=== PATIENT | female | born 1930 | race Caucasian/White ===

== ENCOUNTER 2017-09-03 23:21 | Emergency (ER) | END 2017-09-04 07:05 | disposition home or self-care (01) ==

== ENCOUNTER 2017-11-27 00:51 | Observation (INO) | END 2017-11-29 20:15 | disposition home or self-care (01) ==

== ENCOUNTER 2018-09-09 18:48 | Emergency (ER) | payer MEDICARE, OTHER ==
[~2018-09-09] VITALS: Ht 160 cm; Wt 70.0 kg
[~2018-09-09 18:48] MED LIST: ALEN70TA5 PO; CLOP75TA19 PO; DONE5TAB53 PO; FEBU40TA PO; HYDR-3671 PO; LEVO125T7 PO; NEBI20TA2 PO; SITA100T11 PO; TRAM50TA PO
[2018-09-09 18:56] VITALS: Ht 160 cm; Wt 70.0 kg
[2018-09-09] MEDS ORDERED: SOD CHLORIDE 0.9% 1,000 ML IV STA (19:00)
[2018-09-09] MEDS ORDERED: CLON-379 PO (19:20)
[2018-09-09] MEDS ORDERED: HYDR-3672 PO (19:20)
[2018-09-09] MEDS ORDERED: DONE5TAB53 PO (19:21)
[2018-09-09] MEDS ORDERED: LEVO137T3 PO (19:21)
[2018-09-09] MEDS ORDERED: FURO20TA3 PO (19:21)
[2018-09-09] MEDS ORDERED: MEMA10TA PO (19:22)
[2018-09-09] MEDS ORDERED: ATOR20TA38 PO (19:22)
[2018-09-09] MEDS ORDERED: CLOP75TA19 PO (19:23)
[2018-09-09] MEDS ORDERED: SITA50TA2 PO (19:23)
[2018-09-09] MEDS ORDERED: POTA10TA37 PO (19:24)
--- NOTE | 2018-09-09 21:11 | ERD ---
ER Documentation Chief Complaint Chief Complaint BIBA for shaking after shot for UTI today HPI A [employer] was used 87-year-old female who presents via EMS for dry mouth and shakiness. The patient cannot provide a clear history. She states that she was at [facility] and received a shot for something, possibly a bladder infection. She states that she went home and started to have dry mouth and started to feel sh aky. Currently she is feeling somewhat better. She denies any fevers chills chest pain or abdominal pain. Remainder of HPI is exquisitely limited. ROS All systems reviewed and are negative except as per history of present illness. Medications Home Meds Reported Medications Potassium Chloride* (K-Dur*) 10 Meq Tab.prt.sr, 10 MEQ PO DAILY, TAB 09/09/18 Sitagliptin* (Januvia*) 50 Mg Tablet, 50 MG PO DAILY, #30 TAB 09/09/18 Clopidogrel Bisulfate* (Clopidogrel Bisulfate*) 75 Mg Tablet, 75 MG PO DAILY, #30 TAB 09/09/18 Memantine* (Namenda*) 10 Mg Tablet, 10 MG PO DAILY, #30 TAB 09/09/18 Atorvastatin Calcium* (Atorvastatin Calcium*) 20 Mg Tablet, 20 MG PO QHS, #30 TAB 09/09/18 Donepezil* (Aricept*) 5 Mg Tablet, 5 MG PO DAILY, TAB 09/09/18 Levothyroxine Sodium* (Levothyroxine Sodium*) 137 Mcg Tablet, 137 MCG PO BEFORE BREAKFAST, #30 TAB 09/09/18 Furosemide* (Furosemide*) 20 Mg Tablet, 20 MG PO BID, #30 TAB 09/09/18 Clonidine Hcl* (Clonidine Hcl*) 0.1 Mg Tab, 0.1 MG PO NEEDED, TAB 09/09/18 Hydralazine Hcl* (Apresoline*) 50 Mg Tab, 50 MG PO Q8, #90 TAB 09/09/18 Discontinued Reported Medications Nebivolol Hcl* (Bystolic*) 20 Mg Tablet, 20 MG PO DAILY, #30 TAB 11/26/17 Tramadol Hcl* (Ultram*) 50 Mg Tablet, 50 MG PO NEEDED PRN for PAIN, TAB 11/26/17 Donepezil* (Aricept*) 5 Mg Tablet, 5 MG PO DAILY, TAB 11/26/17 Febuxostat* (Uloric*) 40 Mg Tablet, 40 MG PO DAILY, TAB 11/26/17 Sitagliptin* (Januvia*) 100 Mg Tablet, 100 MG PO NEEDED, #30 TAB 11/26/17 Alendronate Sodium* (Fosamax*) 70 Mg Tablet, 70 MG PO Q7D, #4 TAB 11/26/17 Clopidogrel Bisulfate* (Clopidogrel Bisulfate*) 75 Mg Tablet, 75 MG PO DAILY, #30 TAB 11/26/17 Levothyroxine Sodium* (Levothyroxine Sodium*) 125 Mcg Tablet, 125 MCG PO BEFORE BREAKFAST, #30 TAB 11/26/17 Hydralazine Hcl* (Hydralazine Hcl*) 25 Mg Tab, 25 MG PO DAILY, #120 TAB 11/26/17 Allergies Allergies: Coded Allergies: No Known Allergy (Unverified , 09/09/18) PMhx/Soc History of Surgery: Yes (colon resection, 2001, bilat cataractectomy ) Anesthesia Reaction: No Hx Neurological Disorder: No Hx Respiratory Disorders: No Hx Cardiac Disorders: Yes (htn, high cholesterol) Hx Psychiatric Problems: No Hx Miscellaneous Medical Probl: Yes (Ovarian CA,diabetes,thyroid problems) Hx Alcohol Use: No Hx Substance Use: No Hx Tobacco Use: No Smoking Status: Never smoker FmHx Family History: No diabetes Physical Exam Vitals Vital Signs Date Temp Pulse Resp B/P (MAP) Pulse Ox O2 O2 Flow FiO2 Time Delivery Rate 09/09/18 98.3 60 20 157/89 98 18:56 (111) Physical Exam General: Well developed, well nourished, no acute distress Head: Normocephalic, atraumatic. Eyes: Pupils equally reactive, EOM intact ENT: Moist mucous membranes Neck: Supple, no lymphadenopathy Respiratory: Lungs clear bilaterally, no distress Cardiovascular: RRR, no murmurs, rubs, or gallops Abdominal: Soft, non-tender, non-distended, no peritoneal signs : Deferred MSK: No edema, no unilateral swelling, 5/5 strength Neurologic: Alert and oriented, moving all extremities, normal speech, no focal weakness, no cerebellar signs Skin: No rash Psych: Anxious mood Result Diagram: 09/09/18192509/09/181925 Results 24 hrs Laboratory Tests Test 09/09/18 19:26 White Blood Count 9.0 10^3/ul Red Blood Count 3.77 10^6/ul Hemoglobin 10.7 g/dl Hematocrit 33.2 % Mean Corpuscular Volume 88.1 fl Mean Corpuscular Hemoglobin 28.4 pg Mean Corpuscular Hemoglobin Concent 32.2 g/dl Red Cell Distribution Width 14.1 % Platelet Count 216 10^3/UL Mean Platelet Volume 11.7 fl Immature Granulocytes % 0.300 % Neutrophils % 64.6 % Lymphocytes % 18.8 % Monocytes % 14.5 % Eosinophils % 1.2 % Basophils % 0.6 % Nucleated Red Blood Cells % 0.0 /100WBC Immature Granulocytes # 0.030 10^3/ul Neutrophils # 5.8 10^3/ul Lymphocytes # 1.7 10^3/ul Monocytes # 1.3 10^3/ul Eosinophils # 0.1 10^3/ul Basophils # 0.1 10^3/ul Nucleated Red Blood Cells # 0.0 10^3/ul Sodium Level 140 mmol/L Potassium Level 3.7 mmol/L Chloride Level 102 mmol/L Carbon Dioxide Level 26 mmol/L Anion Gap 12 Blood Urea Nitrogen 27 mg/dl Creatinine 1.76 mg/dl Est Glomerular Filtrat Rate mL/min mL/min Glucose Level 109 mg/dl Calcium Level 9.3 mg/dl Current Medications Medications Dose Sig/David Start Time Status Last (Trade) Ordered Route PRN Stop Time Admin Dose Reason Admin Sodium 1,000 ml @ Q1H STAT 09/09/18 DC 09/09/18 Chloride 1,000 mls/hr IV 19:00 19:29 09/09/18 19:59 Procedures/MDM LAB INTERPRETATION: I reviewed the laboratory testing and it shows no evidence of acute process MEDICAL DECISION MAKING: The patient gave me permission to call [facility]. The patient was evaluated and had a thorough workup that included ultrasound of the gallbladder, CT of the abdomen pelvis, chest x-ray, urinalysis, CBC, coagulation, chemistry profile and troponin. Only abnormalities included positive leukocyte Estrace and a creatinine of 1.7. Diagnostic imaging was additionally negative. The patient was treated for possible pyelonephritis with Rocephin and discharged on Keflex and Macrobid. The patient does not exhibit any signs or symptoms concerning for allergic reaction. Her symptoms are not consistent with adverse reaction secondary to Rocephin. Anxiety seems to be playing a large role currently. Clinically I do not believe the patient is consistent with acute pyelonephritis. She has no fever, no flank pain and no urinary symptoms. Even at [facility] the patient did not have a leukocytosis. Diagnosis of pyelonephritis seems unlikely. I will recheck the patient's blood work to ensure no significant electrolyte abnormalities or leukocytosis but reassurance was provided and I believe the patient can be safely discharged. ER COURSE: * Laboratory testing is consistent with labs at [facility]. * The patient is feeling much better, ambulatory and resting comfortably. * The patient can be safely discharged home. CONSULTATION: None DISPOSITION PLAN: The patient does not have an identifiable emergent medical condition that warrants inpatient hospitalization at this time. The patient is deemed safe for discharge with outpatient follow-up. We discussed follow up with the patient's primary care doctor within 24 to 48 hours as needed. We also discussed return to the emergency room for worsening symptoms or worsening condition. Outpatient referral: None required Departure Diagnosis: Primary Impression: Dry mouth Additional Impression: Encounter for medical screening examination Condition: Stable Patient Instructions: Medical Screening Exam, Nonurgent Referrals: [facility] YOU HAVE RECEIVED A MEDICAL SCREENING EXAM AND THE RESULTS INDICATE THAT YOU DO NOT HAVE A CONDITION THAT REQUIRES URGENT TREATMENT IN THE EMERGENCY DEPARTMENT. FURTHER EVALUATION AND TREATMENT OF YOUR CONDITION CAN WAIT UNTIL YOU ARE SEEN IN YOUR DOCTORS OFFICE WITHIN THE NEXT 1-2 DAYS. IT IS YOUR RESPONSIBILITY TO MAKE AN APPOINTMENT FOR FOLOW-UP CARE. IF YOU HAVE A PRIMARY DOCTOR --you should call your primary doctor and schedule an appointment IF YOU DO NOT HAVE A PRIMARY DOCTOR YOU CAN CALL OUR PHYSICIAN REFERRAL HOTLINE AT IF YOU CAN NOT AFFORD TO SEE A PHYSICIAN YOU CAN CHOSE FROM THE FOLLOWING FORMERLY [facility] CLINICS [facility] [address] [facility] [address] [facility] [facility] [address] [facility] [address] [facility] [address] [facility] [facility]. [address] [facility] YOU HAVE RECEIVED A MEDICAL SCREENING EXAM AND THE RESULTS INDICATE THAT YOU DO NOT HAVE A CONDITION THAT REQUIRES URGENT TREATMENT IN THE EMERGENCY DEPARTMENT. FURTHER EVALUATION AND TREATMENT OF YOUR CONDITION CAN WAIT UNTIL YOU ARE SEEN IN YOUR DOCTORS OFFICE WITHIN THE NEXT 1-2 DAYS. IT IS YOUR RESPONSIBILITY TO MAKE AN APPOINTMENT FOR FOLOW-UP CARE. IF YOU HAVE A PRIMARY DOCTOR --you should call your primary doctor and schedule and appointment IF YOU DO NOT HAVE A PRIMARY DOCTOR YOU CAN CALL OUR PHYSICIAN REFERRAL HOTLINE AT . IF YOU CAN NOT AFFORD TO SEE A PHYSICIAN YOU CAN CHOSE FROM THE FOLLOWING [facility] INSTITUTIONS: [facility] [address] [place] [address] [facility] [address] [place] [address] [facility] [address] [place] [address] Additional Instructions: Call your primary care doctor TOMORROW for an appointment during the next 1 WEEK.Tell the corporation secretary that you were referred from this facility.See the doctor sooner or return here if your condition worsens before your appointment time. RICH DIETZ MD Sep 09, 2018 21:11
[2018-09-09 21:23] VITALS: BP 179/72; PULSE 65; RESP 16
== END 2018-09-09 21:30 | disposition home or self-care (01) ==
LOC: E/R 18:48
DX: R68.2 Dry mouth, unspecified (principal); I10 Essential (primary) hypertension; E11.9 Type 2 diabetes mellitus without complications; Z02.89 Encounter for other administrative examinations; Z79.01 Long term (current) use of anticoagulants; Z79.84 Long term (current) use of oral hypoglycemic drugs; Z85.43 Personal history of malignant neoplasm of ovary
CPT/HCPCS: 36415; 80048; 85025; 99284; J7030

== ENCOUNTER 2018-12-11 17:19 | Inpatient (IN) | payer MEDICARE, OTHER ==
[~2018-12-11] VITALS: Ht 157.5 cm; Wt 68.0 kg
[~2018-12-11 17:19] MED LIST changes: -ALEN70TA5 PO; +ATOR20TA38 PO; +CLON-379 PO; -FEBU40TA PO; +FURO20TA3 PO; -HYDR-3671 PO; +HYDR-3672 PO; -LEVO125T7 PO; +LEVO137T3 PO; +MEMA10TA PO; -NEBI20TA2 PO; +POTA10TA37 PO; -SITA100T11 PO; +SITA50TA2 PO; -TRAM50TA PO
[2018-12-11] MEDS ORDERED: LEVO112T57 PO (17:44)
[2018-12-11] MEDS ORDERED: ZOLP10TA5 PO (17:45)
[2018-12-11] MEDS ORDERED: morphine 2 MG INJ IV STA (18:08)
[2018-12-11] MEDS ORDERED: ONDANSETRON 4 MG INJ IV STA (18:08)
[2018-12-11] MEDS ORDERED: FUROSEMIDE 40 MG INJ IV STA (18:08)
[2018-12-11] MEDS ORDERED: NITROGLYCERIN 2% 1 GM OINT PKT TD STA (18:08)
[2018-12-11] MEDS ORDERED: ASPIRIN 325 MG TAB PO STA (18:08)
--- NOTE | 2018-12-11 19:24 | ERD ---
ER Documentation Chief Complaint Chief Complaint FEELING SICK AND WEAK HPI During the patient's encounter translation services were utilized Language: British Source: Video 88-year-old female history of hypertension who presents to the emergency room feeling weak for several days. Patient describes shortness of breath worse when laying flat, associated bilateral lower externally pitting edema. She notes her blood pressure has been elevated despite compliance with medication. She states that she took 2 of her blood pressure medications today. She denies any prior history of stents or CHF. No fevers chills cough or pleuritic pain. ROS All systems reviewed and are negative except as per history of present illness. Medications Home Meds Reported Medications Zolpidem Tartrate* (Zolpidem Tartrate*) 10 Mg Tablet, 10 MG PO QHS PRN for INSOMNIA, #30 TAB 12/11/18 Levothyroxine Sodium* (Levothyroxine Sodium*) 112 Mcg Tablet, 112 MCG PO BEFORE BREAKFAST, #30 TAB 12/11/18 Potassium Chloride* (K-Dur*) 10 Meq Tab.prt.sr, 10 MEQ PO DAILY, TAB 09/09/18 Sitagliptin* (Januvia*) 50 Mg Tablet, 50 MG PO DAILY, #30 TAB 09/09/18 Clopidogrel Bisulfate* (Clopidogrel Bisulfate*) 75 Mg Tablet, 75 MG PO DAILY, #30 TAB 09/09/18 Memantine* (Namenda*) 10 Mg Tablet, 10 MG PO DAILY, #30 TAB 09/09/18 Atorvastatin Calcium* (Atorvastatin Calcium*) 20 Mg Tablet, 20 MG PO QHS, #30 TAB 09/09/18 Donepezil* (Aricept*) 5 Mg Tablet, 5 MG PO DAILY, TAB 09/09/18 Furosemide* (Furosemide*) 20 Mg Tablet, 20 MG PO BID, #30 TAB 09/09/18 Clonidine Hcl* (Clonidine Hcl*) 0.1 Mg Tab, 0.1 MG PO NEEDED, TAB 09/09/18 Hydralazine Hcl* (Apresoline*) 50 Mg Tab, 50 MG PO BID, #90 TAB 09/09/18 Discontinued Reported Medications Levothyroxine Sodium* (Levothyroxine Sodium*) 137 Mcg Tablet, 137 MCG PO BEFORE BREAKFAST, #30 TAB 09/09/18 Allergies Allergies: Coded Allergies: No Known Allergy (Unverified , 12/11/18) PMhx/Soc History of Surgery: Yes (colon resection, 2002, bilat cataractectomy ) Anesthesia Reaction: No Hx Neurological Disorder: No Hx Respiratory Disorders: No Hx Cardiac Disorders: Yes (htn, high cholesterol) Hx Psychiatric Problems: No Hx Miscellaneous Medical Probl: Yes (Ovarian CA,diabetes,thyroid problems) Hx Alcohol Use: No Hx Substance Use: No Hx Tobacco Use: No FmHx Family History: No diabetes Physical Exam Vitals Vital Signs Date Temp Pulse Resp B/P (MAP) Pulse Ox O2 O2 Flow FiO2 Time Delivery Rate 12/11/18 175 23 175/54 95 Nasal 2.0 19:10 (94) Cannula 12/11/18 69 21 189/87 95 Nasal 2.0 18:46 (121) Cannula 12/11/18 98.4 68 18 210/86 98 17:31 (127) Physical Exam General: Well developed, well nourished, no acute distress Head: Normocephalic, atraumatic. Eyes: Pupils equally reactive, EOM intact ENT: Moist mucous membranes Neck: Supple, no lymphadenopathy Respiratory: Rales at the bases bilaterally, no significant distress Cardiovascular: RRR, no murmurs, rubs, or gallops Abdominal: Soft, non-tender, non-distended, no peritoneal signs : Deferred MSK: Bilateral lower extremity pitting edema, no unilateral swelling, 5/5 strength Neurologic: Alert and oriented, moving all extremities, normal speech, no focal weakness, no cerebellar signs Skin: No rash Psych: Normal mood Result Diagram: 12/11/18181112/11/181811 Results 24 hrs Laboratory Tests Test 12/11/18 18:12 White Blood Count 10.6 10^3/ul Red Blood Count 3.51 10^6/ul Hemoglobin 9.8 g/dl Hematocrit 31.4 % Mean Corpuscular Volume 89.5 fl Mean Corpuscular Hemoglobin 27.9 pg Mean Corpuscular Hemoglobin Concent 31.2 g/dl Red Cell Distribution Width 14.3 % Platelet Count 207 10^3/UL Mean Platelet Volume 10.8 fl Immature Granulocytes % 0.700 % Neutrophils % 76.3 % Lymphocytes % 11.2 % Monocytes % 9.9 % Eosinophils % 1.3 % Basophils % 0.6 % Nucleated Red Blood Cells % 0.0 /100WBC Immature Granulocytes # 0.070 10^3/ul Neutrophils # 8.1 10^3/ul Lymphocytes # 1.2 10^3/ul Monocytes # 1.0 10^3/ul Eosinophils # 0.1 10^3/ul Basophils # 0.1 10^3/ul Nucleated Red Blood Cells # 0.0 10^3/ul Prothrombin Time 13.5 Sec Prothrombin Time Ratio 1.1 INR International Normalized Ratio 1.02 Activated Partial Thromboplast Time 32.8 Sec Sodium Level 142 mmol/L Potassium Level 4.2 mmol/L Chloride Level 109 mmol/L Carbon Dioxide Level 26 mmol/L Anion Gap 7 Blood Urea Nitrogen 22 mg/dl Creatinine 1.31 mg/dl Est Glomerular Filtrat Rate mL/min mL/min Glucose Level 132 mg/dl Calcium Level 8.8 mg/dl Troponin I < 0.012 ng/ml B-Type Natriuretic Peptide 6240 PG/ML Current Medications Medications Dose Sig/David Start Time Status Last (Trade) Ordered Route PRN Stop Time Admin Dose Reason Admin Aspirin 325 mg ONCE STAT 12/11/18 DC 12/11/18 (Aspirin) PO 18:08 18:29 12/11/18 18:09 1 inch ONCE STAT 12/11/18 DC 12/11/18 Nitroglycerin TD 18:08 18:32 12/11/18 18:09 (Nitroglyceri n 2% Oint) Morphine 2 mg ONCE STAT 12/11/18 DC 12/11/18 Sulfate IV 18:08 18:33 (morphine) 12/11/18 18:09 Ondansetron 4 mg ONCE STAT 12/11/18 DC 12/11/18 HCl (Zofran IV 18:08 18:28 Inj) 12/11/18 18:09 Furosemide 40 mg ONCE STAT 12/11/18 DC 12/11/18 (Lasix) IV 18:08 18:32 12/11/18 18:09 Ondansetron 4 mg ER BRIDGE 12/11/18 HCl (Zofran PRN IV 19:30 Inj) NAUSEA/VOMITI 12/12/18 19:29 NG 650 mg ER BRIDGE 12/11/18 Acetaminophen PRN PO 19:30 (Tylenol .MILD PAIN 12/12/18 19:29 Tab) 1-3 OR TEMP Procedures/MDM EKG, MONITORS, & DIAGNOSTIC IMAGING: EKG: I reviewed and interpreted a 12-lead EKG. Rhythm: Normal sinus rhythm ST Changes: No contiguous ST segment elevations T waves: No contiguous T wave inversions Impression: [No evidence of acute cardiac ischemia] Repeat EKG: EKG: I reviewed and interpreted a 12-lead EKG. Rhythm: Normal sinus rhythm ST Changes: No contiguous ST segment elevations T waves: No contiguous T wave inversions Impression: [No evidence of acute cardiac ischemia] Chest x-ray: I reviewed and interpreted a 1 view of the chest Mediastinum: No enlargement Cardiac silhouette: cardiomegaly Airspace: Interstitial process bilaterally Bones: No evidence of fracture PROCEDURES: [None] LAB INTERPRETATION: * Negative troponin, elevated BNP MEDICAL DECISION MAKING: The patient's history, physical exam and clinical presentation is concerning for possible cardiogenic etiology and hypertensive emergency with decompensated heart failure new diagnosis of heart failure. Patient is protecting airway does not require positive pressure ventilation or nitroglycerin drip. Based on the patient's clinical exam and history and risk factors, I have a much lower clinical concern for pulmonary embolism, acute aortic dissection, pneumothorax, pneumonia, cardiac tamponade ER COURSE: * Patient was given nitroglycerin, Lasix, aspirin. The patient's blood pressure is dramatically improved and her lung exam is improved. * Patient does not require positive pressure ventilation or nitroglycerin drip. * Inpatient hospitalization for work-up for new onset CHF would be appropriate. CONSULTATION: [None] DISPOSITION PLAN: Telemetry admission for management of chest pain to rule out acute coronary syndrome, serial enzymes, risk stratification and consideration of provocative testing CONSULTATION: Accepting care team and consultations: I discussed the current laboratory data, diagnostic imaging and emergency care provided. Admitting team: Dr. Bradshaw Admitting team indication: Insurance directed Departure Diagnosis: Primary Impression: New onset of congestive heart failure Additional Impressions: Hypertensive emergency Acute renal insufficiency Anemia Anemia type: unspecified type Qualified Codes: D64.9 - Anemia, unspecified Condition: Stable RICH DIETZ MD December 11, 2018 19:24
[2018-12-11] MEDS ORDERED: ONDANSETRON 4 MG INJ IV PRN ×2 (19:30→20:30)
[2018-12-11] MEDS ORDERED: ACETAMINOPHEN 325 MG TAB PO PRN ×2 (19:30→20:30)
--- NOTE | 2018-12-11 20:05 | HP ---
Date/Time of Note Date/Time of Note DATE: 12/11/18 TIME: 20:05 Assessment/Plan VTE Prophylaxis SCD applied (from Nsg): Yes Pharmacological prophylaxis: NA/contraindicated Pharm contraindication: low risk/ambulating Lines/Catheters IV Catheter Type (from Nrsg): Saline Lock Assessment/Plan Hospital Course This is a 88-year-old female being admitted to the telemetry floor for: #1 acute systolic versus diastolic CHF exacerbation: Patient denies a previous history of CHF diagnosis, however based on her medications I do feel that she may have been diagnosed with a before.. She does have an elevated BNP of approximately 6000. She has signs of volume overload clinically and on imaging studies. At the current time will initiate the patient on Lasix 40 mg IV daily. Will monitor daily weights. Fluid restriction. We will check hemoglobin A 1C, lipid panel, TSH. Monitor urine output. Will check an echocardiogram. Will consult cardiology . #2 Sinus bradycardia: On admission patient's EKG showed normal sinus rhythm at approximately 65 bpm however on telemetry her heart rate has been noted to be in the 40s. As she is asymptomatic we will continue to monitor on telemetry. PRN atropine 0.5 mg IV for heart rate below 35 or symptomatic. Will consult cardiology . #3 hypertensive urgency: Patient did present with blood pressures in the 200s, possibly secondary to volume overload. Patient did receive nitro patch in the emergency department as well as Lasix which did improve her blood pressures. Will monitor blood pressures closely. #4 dementia: Continue patient's home medications #5 hypothyroidism: We will check a TSH, continue levothyroxine #6 Diabetes mellitus: We will check hemoglobin A 1C, will hold home oral medications at the current time #7 Antiplatelet: We will continue her on Plavix at the current time #8 DVT GI prophylaxis: Lovenox, no GI prophylaxis indicated Further treatment strategy will be implemented as per the clinical course Result Diagram: 12/11/18181112/11/182 Results 24hrs Laboratory Tests Test 12/11/18 18:12 White Blood Count 10.6 Red Blood Count 3.51 L Hemoglobin 9.8 L Hematocrit 31.4 L Mean Corpuscular Volume 89.5 Mean Corpuscular Hemoglobin 27.9 L Mean Corpuscular Hemoglobin Concent 31.2 L Red Cell Distribution Width 14.3 Platelet Count 207 Mean Platelet Volume 10.8 H Immature Granulocytes % 0.700 H Neutrophils % 76.3 Lymphocytes % 11.2 L Monocytes % 9.9 Eosinophils % 1.3 Basophils % 0.6 Nucleated Red Blood Cells % 0.0 Immature Granulocytes # 0.070 H Neutrophils # 8.1 H Lymphocytes # 1.2 Monocytes # 1.0 H Eosinophils # 0.1 Basophils # 0.1 Nucleated Red Blood Cells # 0.0 Prothrombin Time 13.5 Prothrombin Time Ratio 1.1 INR International Normalized Ratio 1.02 Activated Partial Thromboplast Time 32.8 Sodium Level 142 Potassium Level 4.2 Chloride Level 109 Carbon Dioxide Level 26 Anion Gap 7 Blood Urea Nitrogen 22 H Creatinine 1.31 H Est Glomerular Filtrat Rate mL/min Glucose Level 132 Calcium Level 8.8 Troponin I < 0.012 B-Type Natriuretic Peptide 6240 H HPI/ROS Admit Date/Time Admit Date/Time Hx of Present Illness Chief complaint: Shortness of breath, weak This is a 88-year-old female history of hypertension who presents to the emergency room feeling weak for several days. Patient describes shortness of breath worse when laying flat, associated bilateral lower externally pitting edema. She notes her blood pressure has been elevated despite compliance with medication. She states that she took 2 of her blood pressure medications today. She does not report a history of cardiac stents or CHF despite the fact that she is currently on Lasix. She lives with her . She is currently on Plavix and Lasix as well again patient is a poor historian I feel likely secondary to her dementia. Allergies: NKDA Medications: See Sep Const: As per HPI Eyes : No pain discharge or redness or change in visual acuity ENT: No pain, sore throat, congestion, congestion, dysphagia or discharge Respiratory: As per HPI Cardiovascular: No chest pain, palpitation, PND, or edema GI : no change in appetite, abdominal pain, nausea, vomiting, diarrhea, constipation, or change in the color his stool Genitourinary: No dysuria, hematuria, flank pain , discharge or CVA tenderness Musculoskeletal: As per HPI Skin: No rash, bruising or hives Neuro: No headache, dizziness, syncope, seizure, focal weakness Endocrine: No polyuria, polydipsia, temperature intolerance Psych: No hallucination, depression, anxiety or suicidal ideation PMH/Family/Social Past Medical History History of ovarian CA,diabetes, hypothyroidism, htn, high cholesterol, dementia Medications Current Medications Ondansetron HCl (Zofran Inj) 4 mg ER BRIDGE PRN IV NAUSEA/VOMITING; Start 12/11/18 at 19:30; Stop 12/12/18 at 19:29 Acetaminophen (Tylenol Tab) 650 mg ER BRIDGE PRN PO .MILD PAIN 1-3 OR TEMP; Start 12/11/18 at 19:30; Stop 12/12/18 at 19:29 Coded Allergies: No Known Allergy (Unverified , 12/11/18) Past Surgical History colon resection, 2002, bilat cataractectomy ) Family History Significant Family History: no pertinent family hx Social History Alcohol Use: none Smoking Status: Never smoker Drug Use: none Exam/Review of Systems Vital Signs Vitals Vital Signs Date Temp Pulse Resp B/P (MAP) Pulse Ox O2 O2 Flow FiO2 Time Delivery Rate 12/11/18 64 20 154/58 96 Nasal 2.0 19:45 (90) Cannula 12/11/18 98.4 17:31 Exam Exam General: Patient is a very pleasant female lying in bed in no acute distress HEENT: Atraumatic, normocephalic. The pupils are equal, round and reactive. Extraocular motor are intact Neck: Supple with full range of motion. No rigidity or meningismus Chest: Nontender Lungs: Crackles/rales bilaterally, expiratory wheezing, nonlabored breathing, nonproductive cough during expiration Heart: Normal S1-S2, Regular rhythm and rate. No murmur, S3, or S4 Abdomen: Soft , nontender, nondistended , bowel sounds are present. No guarding no rebound tenderness , No masses or organomegaly. No costovertebral temporal angle mass Extremities: Bilateral 2+ pitting edema of the lower extremities Neurologic: Normal mental status, speech normal, cranial nerves II through XII are intact, motor and sensory are intact, Additional Comments PROCEDURE: XR Chest, 1 View CLINICAL INDICATION: Chest pain. TECHNIQUE: Frontal view of the chest. COMPARISON: 08/10/2013 FINDINGS: LUNGS: Mildly increased pulmonary vascularity noted. Mildly increased interst itial markings. No consolidated infiltrates. PLEURAL SPACE: Small bilateral pleural effusions. No pneumothorax. HEART: Mild cardiomegaly is noted. MEDIASTINUM: Unremarkable. BONES/JOINTS: Degenerative spine changes are noted. IMPRESSION: 1. Mild cardiomegaly is noted. 2. Mildly increased pulmonary vascularity noted. Mildly increased interstitial markings. No consolidated infiltrates. Findings suggest mild fluid overload/CHF. 3. Small bilateral pleural effusions. RPTAT: [facility] Jair Maldonado, Physician Oncology Consultant Date Time Electronically viewed and signed by Jair Maldonado, Physician Oncology Consultant on 12/11/2018 18:45 RmC/ CC: RICH DIETZ MD [id number] EKG:. Rhythm: Normal sinus rhythm ST Changes: No contiguous ST segment elevations T waves: No contiguous T wave inversions Impression: [No evidence of acute cardiac ischemia] GURPREET LEVINE December 11, 2018 20:05
[2018-12-11] MEDS ORDERED: NITROGLYCERIN (SL) 0.4 MG TAB SL PRN (20:30)
[2018-12-11] MEDS ORDERED: BISACODYL (EC) 5 MG TAB PO PRN (20:30)
[2018-12-11] MEDS ORDERED: NACL 0.9% 3 ML SYG IV SCH (20:30)
[2018-12-11] MEDS ORDERED: DOCUSATE SODIUM 100 MG CAP PO PRN (20:30)
[2018-12-11] MEDS ORDERED: MAGNESIUM SULFATE 1 GM/D5W 100 ML IVPB ONE (23:00)
[2018-12-11] MEDS: POTASSIUM CHLORIDE (SR) 20 MEQ TAB PO STA ×2 (23:16→23:48)
[2018-12-12] VITALS (14 sets, daily range): BP systolic 119–168; BP diastolic 52–67; PULSE 39–81; RESP 16–18; Ht 157.5 cm; Wt 68.0 kg
[2018-12-12] MEDS: HEPARIN 5,000 UNIT/1 ML VIAL SC SCH ×4 (03:51→22:37)
[2018-12-12] MEDS ORDERED: LEVOTHYROXINE 112 MCG TAB PO SCH (07:00)
[2018-12-12] MEDS: MEMANTINE 10 MG TAB PO SCH (08:30)
[2018-12-12] MEDS: DONEPEZIL 5 MG TAB PO SCH (08:31)
[2018-12-12] MEDS: CLOPIDOGREL 75 MG TAB PO SCH (08:31)
[2018-12-12] MEDS ORDERED: POTASSIUM CHLORIDE (SR) 10 MEQ TAB PO SCH (09:00)
[2018-12-12] MEDS ORDERED: FUROSEMIDE 40 MG INJ IV SCH (09:00)
--- NOTE | 2018-12-12 10:38 | PN ---
Date/Time of Note Date/Time of Note DATE: 12/12/18 TIME: 10:26 Assessment/Plan VTE Prophylaxis Risk score (from Nsg)>0 risk: 4 SCD applied (from Nsg): Yes Pharmacological prophylaxis: heparin Lines/Catheters IV Catheter Type (from Nrs): Saline Lock Urinary Cath still in place: No Assessment/Plan Hospital Course 88-year-old female who presented to the emergency room with lethargy, shortness of breath and orthopnea admitted and managed as follows: 1. Acute resp failure 2/2 CHF exacerbation -Family had no prior knowledge of CHF diagnosis, though patient was mainta ined on Lasix therapy outpatient -patient on 2L O2 via NC 2. Poorly controlled hypertension: -Per family, patient had medications with change from hydralazine twice daily to a beta-rj and ARB (bystolic/avapro) combination just a week ago -Since patient has been on this new regimen, blood pressure has been poorly controlled. -she is back on bid hydralazine with excellent inhouse control -Patient will however indeed benefit from beta-rj and ARB therapy. -We will however defer to cardiology and nephrology, as patient is with LOUIE and with CHF exacerbation at this time -Continue current regimen for now 3. Sinus bradycardia: -Likely secondary to new beta-rj therapy -Patient is off AV sravanthi blockers at this time as an inpatient 4. Chronic kidney disease: Baseline creatinine somewhere between 1.2 and 1.6? -LOUIE? 5. Mild transaminitis, with ALT elevation, new onset, significance unclear. Patient also has elevated alkaline phosphatase, also new -Last liver ultrasound, November 2017 showed no hepatomegaly with normal echogenicity. will repeat -hepatitis screen? 6. Hypochromic anemia: Chronic, stable 7. Subclinical hyperthyroidism? --TSH is very low on screening labs, back in October 2017, she had normal TSH, will repeat TSH and check free T4 as well 8. History of dementia on Namenda Plan: -ACS has been ruled out, follow-up echocardiogram findings -Cardiology consultations to assist in blood pressure as well as CHF management -Continue routine supportive care and ,other plan as above , nephrology consult -continue diuresis, wean O2 as tolerated -Further interventions per course Result Diagram: 12/12/18 0738 12/12/18 0738 Results 24hrs Laboratory Tests Test 12/11/18 18:12 12/12/18 01:15 12/12/18 07:38 White Blood Count 10.6 7.3 # Red Blood Count 3.51 L 3.02 L Hemoglobin 9.8 L 8.8 L Hematocrit 31.4 L 27.7 L Mean Corpuscular Volume 89.5 91.7 Mean Corpuscular Hemoglobin 27.9 L 29.1 Mean Corpuscular Hemoglobin Concent 31.2 L 31.8 L Red Cell Distribution Width 14.3 14.5 Platelet Count 207 186 Mean Platelet Volume 10.8 H 12.0 H Immature Granulocytes % 0.700 H 0.300 Neutrophils % 76.3 64.9 Lymphocytes % 11.2 L 18.5 Monocytes % 9.9 13.5 H Eosinophils % 1.3 2.1 Basophils % 0.6 0.7 Nucleated Red Blood Cells % 0.0 0.0 Immature Granulocytes # 0.070 H 0.020 Neutrophils # 8.1 H 4.7 Lymphocytes # 1.2 1.3 Monocytes # 1.0 H 1.0 H Eosinophils # 0.1 0.2 Basophils # 0.1 0.1 Nucleated Red Blood Cells # 0.0 0.0 Prothrombin Time 13.5 Prothrombin Time Ratio 1.1 INR International Normalized Ratio 1.02 Activated Partial Thromboplast Time 32.8 Sodium Level 142 143 Potassium Level 4.2 4.8 Chloride Level 109 108 Carbon Dioxide Level 26 30 Anion Gap 7 5 Blood Urea Nitrogen 22 H 25 H Creatinine 1.31 H 1.50 H Est Glomerular Filtrat Rate mL/min Glucose Level 132 94 Calcium Level 8.8 9.0 Troponin I < 0.012 0.024 0.017 B-Type Natriuretic Peptide 6240 H Creatine Kinase 45 40 Creatine Kinase Index 2.6 2.6 Creatinine Kinase MB (Mass) 1.19 1.05 Hemoglobin A1c 5.6 Magnesium Level 2.4 Total Bilirubin 0.6 Direct Bilirubin 0.00 Indirect Bilirubin 0.6 Aspartate Amino Transf (AST/SGOT) 46 Alanine Aminotransferase (ALT/SGPT) 112 H Alkaline Phosphatase 125 H Total Protein 6.0 L Albumin 3.4 Globulin 2.60 Albumin/Globulin Ratio 1.30 Triglycerides Level 90 Cholesterol Level 137 LDL Cholesterol, Calculated 74 HDL Cholesterol 45 Cholesterol/HDL Ratio 3.0 Thyroid Stimulating Hormone (TSH) < 0.015 L Subjective 24 Hr Interval Summary Constitutional: improved Exam/Review of Systems Exam Vitals Vital Signs Date Temp Pulse Resp B/P (MAP) Pulse Ox O2 O2 Flow FiO2 Time Delivery Rate 12/12/18 Nasal 2.0 08:14 Cannula 12/12/18 53 08:01 12/12/18 97.5 16 127/57 99 07:27 (80) Intake and Output 12/11/18 12/11/18 12/12/18 1515:00 23:00 07:00 IntakeIntake Total 200 ml BalanceBalance 200 ml Constitutional: alert, obese Head: normocephalic, atraumatic Eyes: PERRL ENMT: mucosa pink and moist Respiratory: crackles/rales, diminished breath sounds; No wheezing Cardiovascular: regular rate and rhythm; No murmurs/extra sounds Gastrointestinal: soft, non-tender, bowel sounds Extremities: edema (1+ rosario [id number]) Neurological: No focal weakness Results Results 24hrs Laboratory Tests Test 12/11/18 18:12 12/12/18 01:15 12/12/18 07:38 White Blood Count 10.6 7.3 # Red Blood Count 3.51 L 3.02 L Hemoglobin 9.8 L 8.8 L Hematocrit 31.4 L 27.7 L Mean Corpuscular Volume 89.5 91.7 Mean Corpuscular Hemoglobin 27.9 L 29.1 Mean Corpuscular Hemoglobin Concent 31.2 L 31.8 L Red Cell Distribution Width 14.3 14.5 Platelet Count 207 186 Mean Platelet Volume 10.8 H 12.0 H Immature Granulocytes % 0.700 H 0.300 Neutrophils % 76.3 64.9 Lymphocytes % 11.2 L 18.5 Monocytes % 9.9 13.5 H Eosinophils % 1.3 2.1 Basophils % 0.6 0.7 Nucleated Red Blood Cells % 0.0 0.0 Immature Granulocytes # 0.070 H 0.020 Neutrophils # 8.1 H 4.7 Lymphocytes # 1.2 1.3 Monocytes # 1.0 H 1.0 H Eosinophils # 0.1 0.2 Basophils # 0.1 0.1 Nucleated Red Blood Cells # 0.0 0.0 Prothrombin Time 13.5 Prothrombin Time Ratio 1.1 INR International Normalized Ratio 1.02 Activated Partial Thromboplast Time 32.8 Sodium Level 142 143 Potassium Level 4.2 4.8 Chloride Level 109 108 Carbon Dioxide Level 26 30 Anion Gap 7 5 Blood Urea Nitrogen 22 H 25 H Creatinine 1.31 H 1.50 H Est Glomerular Filtrat Rate mL/min Glucose Level 132 94 Calcium Level 8.8 9.0 Troponin I < 0.012 0.024 0.017 B-Type Natriuretic Peptide 6240 H Creatine Kinase 45 40 Creatine Kinase Index 2.6 2.6 Creatinine Kinase MB (Mass) 1.19 1.05 Hemoglobin A1c 5.6 Magnesium Level 2.4 Total Bilirubin 0.6 Direct Bilirubin 0.00 Indirect Bilirubin 0.6 Aspartate Amino Transf (AST/SGOT) 46 Alanine Aminotransferase (ALT/SGPT) 112 H Alkaline Phosphatase 125 H Total Protein 6.0 L Albumin 3.4 Globulin 2.60 Albumin/Globulin Ratio 1.30 Triglycerides Level 90 Cholesterol Level 137 LDL Cholesterol, Calculated 74 HDL Cholesterol 45 Cholesterol/HDL Ratio 3.0 Thyroid Stimulating Hormone (TSH) < 0.015 L Medications Medication Current Medications IV Flush (NS 3 ml) 3 ml PER PROTOCOL IV ; Start 12/11/18 at 20:30 Ondansetron HCl (Zofran Inj) 4 mg Q6H PRN IV NAUSEA/VOMITING; Start 12/11/18 at 20:30 Nitroglycerin (Nitroglycerin (Sl Tab) 0.4 Mg) 1 tab Q5M PRN SL .CHEST PAIN; Start 12/11/18 at 20:30 Acetaminophen (Tylenol Tab) 650 mg Q6H PRN PO .PAIN 1-3 OR TEMP; Start 12/11/18 at 20:30 Docusate Sodium (Colace) 100 mg Q12H PRN PO .CONSTIPATION; Start 12/11/18 at 20:30 Bisacodyl (Dulcolax) 5 mg DAILY PRN PO .CONSTIPATION; Start 12/11/18 at 20:30 Heparin Sodium (Porcine) (Heparin (5000 Units/1ml)) 5,000 unit Q8 SC Last administered on 12/12/18at 03:51; Admin Dose 5,000 UNIT; Start 12/11/18 at 22:00 Furosemide (Lasix) 40 mg DAILY IV Last administered on 12/12/18at 08:31; Admin Dose 40 MG; Start 12/12/18 at 09:00 Atorvastatin Calcium (Lipitor) 20 mg QHS PO ; Start 12/12/18 at 21:00 Clopidogrel Bisulfate (plaVIX) 75 mg DAILY PO Last administered on 12/12/18 08:31; Admin Dose 75 MG; Start 12/12/18 at 09:00 Donepezil HCl (Aricept) 5 mg DAILY PO Last administered on 12/12/18 08:31; Admin Dose 5 MG; Start 12/12/18 at 09:00 Hydralazine HCl (Apresoline) 50 mg BID PO Last administered on 12/12/18 08:31; Admin Dose 50 MG; Start 12/12/18 at 09:00 Levothyroxine Sodium (Synthroid) 112 mcg BEFORE BREAKFAST PO Last administered on 12/12/18 07:16; Admin Dose 112 MCG; Start 12/12/18 at 07:00 Memantine (Namenda) 10 mg DAILY PO Last administered on 12/12/18 08:30; Admin Dose 10 MG; Start 12/12/18 at 09:00 Potassium Chloride (Klor-Con 10) 10 meq DAILY PO Last administered on 12/12/18 08:31; Admin Dose 10 MEQ; Start 12/12/18 at 09:00 Clonidine (Catapres) 0.1 mg DAILY PRN PO ELEVATED BLOOD PRESSURE; Start 12/12/18 at 07:30 OMER ALEGRIA December 12, 2018 10:37
--- NOTE | 2018-12-12 17:22 | RADRPT ---
Echocardiogram Report Patient Name: JOVI LUXPatient ID: [id number] : 1930 (88y 2m)Study Date: 12/12/2018 9:26:59 AM Gender: FAccession #: [id number] Tech: Otoniel Dozier [facility] Location: [facility] Ref.Physician: GURPREET LEVINE Height(Cm): BSA: Weight(Kg): Quality: AdequateOrder Physician: GURPREET LEVINE Account #: Procedures: Echocardiographic Report: Transthoracic echocardiogram with complete 2D, M-Mode, and doppler examination. Indications: Congestive Heart Failure. Measurements: 2D/M Mode Doppler Measurement Value Normal Range Measurement Value Normal Range LVIDd 2D 3.9 [ 3.8 - 5.2 ] cm AV Peak Taras 1.4 [ 100.0 - 170.0 ] cm/sec LVIDs 2D 2.3 [ 2.2 - 3.5 ] cm AV Peak PG 8.0 [ 2.0 - 9.0 ] mmHg LVPWd 2D 1.2 [ 0.6 - 0.9 ] cm LVOT Peak Taras 1.1 [ 70.0 - 110.0 ] cm/sec IVSd 2D 1.2 [ 0.6 - 0.9 ] cm LVOT Peak PG 5.0 [ 2.0 - 6.0 ] mmHg AoR Diam 2D 2.1 [ 2.3 - 3.1 ] cm MV E Peak Taras 1.4 [ 60.0 - 130.0 ] cm/sec EDV 2D 67.1 [ 46.0 - 106.0 ] ml MV A Peak Taras 0.8 [ 100.0 - 120.0 ] cm/sec ESV 2D 17.7 [ 14.0 - 42.0 ] ml MV E/A 1.8 [ 0.8 - 1.5 ] ratio EF 2D 73.6 [ 54.0 - 74.0 ] percent MV Decel Time 257 [ 104 - 258 ] msec LA Dimen 2D 4.1 [ 2.7 - 3.8 ] cm Lat E` Taras 0.1 [ 10.0 - 15.0 ] cm/sec Lateral E/E` 25.9 [ 1.0 - 2.0 ] ratio MV E/A 1.8 [ 0.8 - 1.5 ] ratio TR Peak Taras 2.9 [ 100.0 - 280.0 ] cm/sec TR Peak PG 34.0 mmHg RVSP 44.0 [ 10.0 - 36.0 ] mmHg Findings: Left Ventricle: Normal left ventricular systolic function. Normal left ventricular cavity size. Mild concentric left ventricular hypertrophy. Ejection fraction is visually estimated at 65 %. Tissue Doppler/Mitral Doppler indices are consistent with pseudonormalization with mildly elevated left atrial pressure (Stage II diastolic dysfunction). Right Ventricle: Normal right ventricular size. Normal right ventricular systolic function. Left Atrium: There is mild enlargement of left atrium. Right Atrium: The right atrium is normal in size. Mitral Valve: Mild mitral leaflet calcification. Mild mitral annular calcification. Mild mitral valve regurgitation. Aortic Valve: No hemodynamically significant aortic stenosis by doppler. Aortic cusps appear mildly calcified. Trace aortic valve regurgitation. Tricuspid Valve: Normal appearance of the tricuspid valve. Estimated peak PA systolic pressure 44 mmHg. There is mild tricuspid regurgitation. Pericardium: There is an anterior echo free space consistent with epicardial fat pad. Left pleural effusion seen. Aorta: Normal aortic root. IVC: Dilated IVC with respiratory collapse consistent with elevated right atrial pressure. Conclusions: There is mild enlargement of left atrium. Normal left ventricular systolic function. Normal left ventricular cavity size. Mild concentric left ventricular hypertrophy. Ejection fraction is visually estimated at 65 %. Tissue Doppler/Mitral Doppler indices are consistent with pseudonormalization with mildly elevated left atrial pressure (Stage II diastolic dysfunction). Mild mitral leaflet calcification. Mild mitral annular calcification. Mild mitral valve regurgitation. No hemodynamically significant aortic stenosis by doppler. Aortic cusps appear mildly calcified. Trace aortic valve regurgitation. Normal appearance of the tricuspid valve. Estimated peak PA systolic pressure 44 mmHg. There is mild tricuspid regurgitation. There is an anterior echo free space consistent with epicardial fat pad. Left pleural effusion seen. Electronically Signed By: Ryan Simeon 2018-12-12 17:21:22 PDT
--- NOTE | 2018-12-12 19:47 | CONS ---
Assessment/Plan Assessment/Plan Hospital Course (Demo Recall) 1. CHF: acute on chronic due to diastolic heart failure 2. HTN urgency 3. LOUIE 4. Dyslipidemia 5. thyroid d/o 6. memeory impairment 7. Marked sinus bradycardia currently is a 20 probably secondary to Bystolic REC HOLD IV LASIX NOW AND F/U renal fx echo reviewed cont BP control hold off on ARB due to LOUIE Thyroid management as per internal medicine. We will check the free T4 as well. We will hold off on Synthroid for now until further information is available Thank you for this referral. We will continue to follow along with you CHRISTIANO PEREIRA MD [facility] Consultation Date/Type/Reason Admit Date/Time Date of Consultation: December 12, 2018 Type of Consult Cardiology Reason for Consultation chf Requesting Provider: OMER ALEGRIA Date/Time of Note DATE: 12/12/18 TIME: 19:43 Hx of Present Illness Interventional cardiology consultation note Chief complaint: Shortness of breath palpitation Reason for consult: CHF History of present illness: Thank you for this referral. History was obtained from the patient is a poor historian discussion with staff physicians review of the chart. This is a pleasant 88-year-old female history of hypertension who presents to the emergency room feeling weak and short of breath and palpitation for several days. She was noted to have severe hypertension with blood pressure over 200 on admission. Currently blood pressure has much improved now She had stated that she took 2 of her blood pressure medications on the day of admission.. She does not report a history of cardiac stents or CHF despite the fact that she is currently on Lasix. She lives with her . Patient is currently breathing much better blood pressure is much better controlled Allergies: No known drug allergies Medications include: Avapro dosage is not clear Bystolic 10 mg nightly Clonidine patch Lipitor 20 mg 3 times a week ASA 81 QOD Donopezil 5 mg lasix 20 qod levothyroxiine 150 lexapro 5 qd remeron 15 mg qpm Family history: no reported early CAD Social history: NONSMOKER Past medical history: HTN Dyslipidemia hypothyroidism on synthroid dementia Review of system: Patient denies all others except for above-mentioned Past Medical History Home Meds Reported Medications Zolpidem Tartrate* (Zolpidem Tartrate*) 10 Mg Tablet, 10 MG PO QHS PRN for INSOMNIA, #30 TAB 12/11/18 Levothyroxine Sodium* (Levothyroxine Sodium*) 112 Mcg Tablet, 112 MCG PO BEFORE BREAKFAST, #30 TAB 12/11/18 Potassium Chloride* (K-Dur*) 10 Meq Tab.prt.sr, 10 MEQ PO DAILY, TAB 09/09/18 Sitagliptin* (Januvia*) 50 Mg Tablet, 50 MG PO DAILY, #30 TAB 09/09/18 Clopidogrel Bisulfate* (Clopidogrel Bisulfate*) 75 Mg Tablet, 75 MG PO DAILY, #30 TAB 09/09/18 Memantine* (Namenda*) 10 Mg Tablet, 10 MG PO DAILY, #30 TAB 09/09/18 Atorvastatin Calcium* (Atorvastatin Calcium*) 20 Mg Tablet, 20 MG PO QHS, #30 TAB 09/09/18 Donepezil* (Aricept*) 5 Mg Tablet, 5 MG PO DAILY, TAB 09/09/18 Furosemide* (Furosemide*) 20 Mg Tablet, 20 MG PO BID, #30 TAB 09/09/18 Clonidine Hcl* (Clonidine Hcl*) 0.1 Mg Tab, 0.1 MG PO NEEDED, TAB 09/09/18 Hydralazine Hcl* (Apresoline*) 50 Mg Tab, 50 MG PO BID, #90 TAB 09/09/18 Discontinued Reported Medications Levothyroxine Sodium* (Levothyroxine Sodium*) 137 Mcg Tablet, 137 MCG PO BEFORE BREAKFAST, #30 TAB 09/09/18 Medications Current Medications IV Flush (NS 3 ml) 3 ml PER PROTOCOL IV ; Start 12/11/18 at 20:30 Ondansetron HCl (Zofran Inj) 4 mg Q6H PRN IV NAUSEA/VOMITING; Start 12/11/18 at 20:30 Nitroglycerin (Nitroglycerin (Sl Tab) 0.4 Mg) 1 tab Q5M PRN SL .CHEST PAIN; Start 12/11/18 at 20:30 Acetaminophen (Tylenol Tab) 650 mg Q6H PRN PO .PAIN 1-3 OR TEMP; Start 12/11/18 at 20:30 Bisacodyl (Dulcolax) 5 mg DAILY PRN PO .CONSTIPATION; Start 12/11/18 at 20:30 Heparin Sodium (Porcine) (Heparin (5000 Units/1ml)) 5,000 unit Q8 SC Last administered on 12/12/18at 15:07; Admin Dose 5,000 UNIT; Start 12/11/18 at 22:00 Furosemide (Lasix) 40 mg DAILY IV Last administered on 12/12/18 08:31; Admin Dose 40 MG; Start 12/12/18 at 09:00 Atorvastatin Calcium (Lipitor) 20 mg QHS PO ; Start 12/12/18 at 21:00 Clopidogrel Bisulfate (plaVIX) 75 mg DAILY PO Last administered on 12/12/18 08:31; Admin Dose 75 MG; Start 12/12/18 at 09:00 Donepezil HCl (Aricept) 5 mg DAILY PO Last administered on 12/12/18 08:31; Admin Dose 5 MG; Start 12/12/18 at 09:00 Hydralazine HCl (Apresoline) 50 mg BID PO Last administered on 12/12/18 08:31; Admin Dose 50 MG; Start 12/12/18 at 09:00 Levothyroxine Sodium (Synthroid) 112 mcg BEFORE BREAKFAST PO Last administered on 12/12/18 07:16; Admin Dose 112 MCG; Start 12/12/18 at 07:00; Status Hold Memantine (Namenda) 10 mg DAILY PO Last administered on 12/12/18 08:30; Admin Dose 10 MG; Start 12/12/18 at 09:00 Potassium Chloride (Klor-Con 10) 10 meq DAILY PO Last administered on 12/12/18 08:31; Admin Dose 10 MEQ; Start 12/12/18 at 09:00 Clonidine (Catapres) 0.1 mg DAILY PRN PO ELEVATED BLOOD PRESSURE; Start 12/12/18 at 07:30 Docusate Sodium (Colace) 100 mg Q12H PO ; Start 12/12/18 at 20:30 Allergies: Coded Allergies: No Known Allergy (Unverified , 12/11/18) Social History Alcohol Use: none Smoking Status: Never smoker Drug Use: none Exam/Review of Systems Vital Signs Vitals Vital Signs Date Temp Pulse Resp B/P (MAP) Pulse Ox O2 O2 Flow FiO2 Time Delivery Rate 12/12/18 48 16:01 12/12/18 98.9 16 126/60 98 15:18 (82) 12/12/18 Nasal 2.0 08:14 Cannula Intake and Output 12/11/18 12/11/18 12/12/18 1515:00 23:00 07:00 IntakeIntake Total 200 ml BalanceBalance 200 ml Exam Exam General: Obese female no acute distress HEENT: NC/AT. pupils are equal. round. NECK: NO JVD. no stridor. CV: RRR. systolic murmur; no gallop or rubs. PULM: no wheezing or rhonchi. GI: SOFT, NT, ND, no rebound or guarding Extremity: trace B/L LE edema. no clubbing. neuro: awake and alert, Psych: calm and pleasant rectal: deferred : normal EKG was personally reviewed which shows sinus bradycardia nonspecific ST abnormalities Echocardiogram was also personally reviewed which shows: Normal left ventricular systolic function. Normal left ventricular cavity size. Mild concentric left ventricular hypertrophy. Ejection fraction is visually estimated at 65 %. Tissue Doppler/Mitral Doppler indices are consistent with pseudonormalization with mildly elevated left atrial pressure (Stage II diastolic dysfunction). Mild mitral leaflet calcification. Mild mitral annular calcification. Mild mitral valve regurgitation. No hemodynamically significant aortic stenosis by doppler. Aortic cusps appear mildly calcified. Trace aortic valve regurgitation. Normal appearance of the tricuspid valve. Estimated peak PA systolic pressure 44 mmHg. There is mild tricuspid regurgitation. There is an anterior echo free space consistent with epicardial fat pad. Left pleural effusion seen. Labs Result Diagram: 12/12/18 0738 12/12/18 0738 Results 24hrs Laboratory Tests Test 12/12/18 01:15 12/12/18 07:38 Creatine Kinase 45 40 Creatine Kinase Index 2.6 2.6 Creatinine Kinase MB (Mass) 1.19 1.05 Troponin I 0.024 0.017 White Blood Count 7.3 # Red Blood Count 3.02 L Hemoglobin 8.8 L Hematocrit 27.7 L Mean Corpuscular Volume 91.7 Mean Corpuscular Hemoglobin 29.1 Mean Corpuscular Hemoglobin Concent 31.8 L Red Cell Distribution Width 14.5 Platelet Count 186 Mean Platelet Volume 12.0 H Immature Granulocytes % 0.300 Neutrophils % 64.9 Lymphocytes % 18.5 Monocytes % 13.5 H Eosinophils % 2.1 Basophils % 0.7 Nucleated Red Blood Cells % 0.0 Immature Granulocytes # 0.020 Neutrophils # 4.7 Lymphocytes # 1.3 Monocytes # 1.0 H Eosinophils # 0.2 Basophils # 0.1 Nucleated Red Blood Cells # 0.0 Sodium Level 143 Potassium Level 4.8 Chloride Level 108 Carbon Dioxide Level 30 Anion Gap 5 Blood Urea Nitrogen 25 H Creatinine 1.50 H Est Glomerular Filtrat Rate mL/min Glucose Level 94 Hemoglobin A1c 5.6 Calcium Level 9.0 Magnesium Level 2.4 Total Bilirubin 0.6 Direct Bilirubin 0.00 Indirect Bilirubin 0.6 Aspartate Amino Transf (AST/SGOT) 46 Alanine Aminotransferase (ALT/SGPT) 112 H Alkaline Phosphatase 125 H Total Protein 6.0 L Albumin 3.4 Globulin 2.60 Albumin/Globulin Ratio 1.30 Triglycerides Level 90 Cholesterol Level 137 LDL Cholesterol, Calculated 74 HDL Cholesterol 45 Cholesterol/HDL Ratio 3.0 Thyroid Stimulating Hormone (TSH) < 0.015 L Medications Medications Current Medications IV Flush (NS 3 ml) 3 ml PER PROTOCOL IV ; Start 12/11/18 at 20:30 Ondansetron HCl (Zofran Inj) 4 mg Q6H PRN IV NAUSEA/VOMITING; Start 12/11/18 at 20:30 Nitroglycerin (Nitroglycerin (Sl Tab) 0.4 Mg) 1 tab Q5M PRN SL .CHEST PAIN; S tart 12/11/18 at 20:30 Acetaminophen (Tylenol Tab) 650 mg Q6H PRN PO .PAIN 1-3 OR TEMP; Start 12/11/18 at 20:30 Bisacodyl (Dulcolax) 5 mg DAILY PRN PO .CONSTIPATION; Start 12/11/18 at 20:30 Heparin Sodium (Porcine) (Heparin (5000 Units/1ml)) 5,000 unit Q8 SC Last administered on 12/12/18at 15:07; Admin Dose 5,000 UNIT; Start 12/11/18 at 22:00 Furosemide (Lasix) 40 mg DAILY IV Last administered on 12/12/18 08:31; Admin Dose 40 MG; Start 12/12/18 at 09:00 Atorvastatin Calcium (Lipitor) 20 mg QHS PO ; Start 12/12/18 at 21:00 Clopidogrel Bisulfate (plaVIX) 75 mg DAILY PO Last administered on 12/12/18 08:31; Admin Dose 75 MG; Start 12/12/18 at 09:00 Donepezil HCl (Aricept) 5 mg DAILY PO Last administered on 12/12/18 08:31; Admin Dose 5 MG; Start 12/12/18 at 09:00 Hydralazine HCl (Apresoline) 50 mg BID PO Last administered on 12/12/18 08:31; Admin Dose 50 MG; Start 12/12/18 at 09:00 Levothyroxine Sodium (Synthroid) 112 mcg BEFORE BREAKFAST PO Last administered on 12/12/18 07:16; Admin Dose 112 MCG; Start 12/12/18 at 07:00; Status Hold Memantine (Namenda) 10 mg DAILY PO Last administered on 12/12/18 08:30; Admin Dose 10 MG; Start 12/12/18 at 09:00 Potassium Chloride (Klor-Con 10) 10 meq DAILY PO Last administered on 12/12/18 08:31; Admin Dose 10 MEQ; Start 12/12/18 at 09:00 Clonidine (Catapres) 0.1 mg DAILY PRN PO ELEVATED BLOOD PRESSURE; Start 12/12/18 at 07:30 Docusate Sodium (Colace) 100 mg Q12H PO ; Start 12/12/18 at 20:30 CHRISTIANO PEREIRA MD December 12, 2018 19:47
[2018-12-12] MEDS: ATORVASTATIN 20 MG TAB PO SCH (21:30)
[2018-12-12] MEDS: DOCUSATE SODIUM 100 MG CAP PO SCH (21:30)
[2018-12-13] VITALS (11 sets, daily range): BP systolic 108–132; BP diastolic 54–79; PULSE 52–75; RESP 16–18
[2018-12-13] MEDS: HEPARIN 5,000 UNIT/1 ML VIAL SC SCH ×3 (07:01→21:42)
[2018-12-13] MEDS: DONEPEZIL 5 MG TAB PO SCH (08:33)
[2018-12-13] MEDS: DOCUSATE SODIUM 100 MG CAP PO SCH ×2 (08:33→21:37)
[2018-12-13] MEDS: MEMANTINE 10 MG TAB PO SCH (08:34)
[2018-12-13] MEDS: CLOPIDOGREL 75 MG TAB PO SCH (08:34)
--- NOTE | 2018-12-13 11:49 | PN ---
Date/Time of Note Date/Time of Note DATE: 12/13/18 TIME: 11:48 Assessment/Plan VTE Prophylaxis Risk score (from Nsg)>0 risk: 5 SCD applied (from Nsg): Yes Pharmacological prophylaxis: heparin Lines/Catheters IV Catheter Type (from Nrsg): Saline Lock Urinary Cath still in place: No Assessment/Plan Hospital Course S: no new complaints O : Constitutional: alert, obese Head: normocephalic, atraumatic Eyes: PERRL ENMT: mucosa pink and moist Respiratory: crackles/rales, diminished breath sounds; No wheezing Cardiovascular: regular rate and rhythm; No murmurs/extra sounds Gastrointestinal: soft, non-tender, bowel sounds Extremities: edema (1+ rosario [id number]) Neurological: No focal weakness assessment and plan: 88-year-old female who presented to the emergency room with lethargy, shortness of breath and orthopnea admitted and managed as follows: 1. Acute resp failure 2/2 CHF exacerbation -Family had no prior knowledge of CHF diagnosis, though patient was maintained on Lasix therapy outpatient -patient on 2L O2 via NC 2. Poorly controlled hypertension: -Per family, patient had medications with change from hydralazine twice daily to a beta-rj and ARB (bystolic/avapro) combination just a week ago -Since patient has been on this new regimen, blood pressure has been poorly controlled. -she is back on bid hydralazine with excellent inhouse control -Patient will however indeed benefit from beta-rj and ARB therapy. -We will however defer to cardiology and nephrology, as patient is with LOUIE and with CHF exacerbation at this time -Continue current regimen for now 3. Sinus bradycardia: -Likely secondary to new beta-rj therapy -Patient is off AV sravanthi blockers at this time as an inpatient 4. Chronic kidney disease: Baseline creatinine somewhere between 1.2 and 1.6? -LOUIE? 5. Mild transaminitis, with ALT elevation, new onset, significance unclear. Patient also has elevated alkaline phosphatase, also new -Last liver ultrasound, November 2017 showed no hepatomegaly with normal echogenicity. will repeat -hepatitis screen? 6. Hypochromic anemia: Chronic, stable 7. Hypothyroidism: --TSH is very low on screening labs, TSH is likely reflective of too tight control of hypothyroidism. Hold Synthroid for now, check T4 8. History of dementia on Namenda 9. Hx of PCI on plavix ? dispo -continue diuresis -continue supportive care -ambulate, PT eval -Further interventions per course Result Diagram: 12/13/186 12/13/18 0456 Results 24hrs Laboratory Tests Test 12/13/18 04:56 White Blood Count 8.3 Red Blood Count 3.14 L Hemoglobin 8.9 L Hematocrit 28.1 L Mean Corpuscular Volume 89.5 Mean Corpuscular Hemoglobin 28.3 L Mean Corpuscular Hemoglobin Concent 31.7 L Red Cell Distribution Width 14.5 Platelet Count 189 Mean Platelet Volume 12.1 H Immature Granulocytes % 0.200 Neutrophils % 64.2 Lymphocytes % 18.2 Monocytes % 11.8 H Eosinophils % 5.0 Basophils % 0.6 Nucleated Red Blood Cells % 0.0 Immature Granulocytes # 0.020 Neutrophils # 5.3 Lymphocytes # 1.5 Monocytes # 1.0 H Eosinophils # 0.4 Basophils # 0.1 Nucleated Red Blood Cells # 0.0 Sodium Level 141 Potassium Level 4.1 Chloride Level 106 Carbon Dioxide Level 30 Anion Gap 5 Blood Urea Nitrogen 34 H Creatinine 1.78 H Est Glomerular Filtrat Rate mL/min Glucose Level 96 Calcium Level 8.6 Magnesium Level 2.3 Total Bilirubin 0.5 Direct Bilirubin 0.00 Indirect Bilirubin 0.5 Aspartate Amino Transf (AST/SGOT) 29 Alanine Aminotransferase (ALT/SGPT) 83 H Alkaline Phosphatase 123 H B-Type Natriuretic Peptide 3740 H Total Protein 6.3 Albumin 3.3 Globulin 3.00 Albumin/Globulin Ratio 1.10 Thyroid Stimulating Hormone (TSH) 0.030 L Free Thyroxine 1.69 Hepatitis B Surface Antigen NEGATIVE Hepatitis B Surface Antibody NEGATIVE Hepatitis C Antibody NEGATIVE Exam/Review of Systems Exam Vitals Vital Signs Date Temp Pulse Resp B/P (MAP) Pulse Ox O2 O2 Flow FiO2 Time Delivery Rate 12/13/18 98.9 63 16 125/60 93 11:10 (81) 12/13/18 Nasal 2.0 08:00 Cannula Intake and Output 12/12/18 12/12/18 12/13/18 1515:00 23:00 07:00 IntakeIntake Total 800 ml 240 ml BalanceBalance 800 ml 240 ml Results Results 24hrs Laboratory Tests Test 12/13/18 04:56 White Blood Count 8.3 Red Blood Count 3.14 L Hemoglobin 8.9 L Hematocrit 28.1 L Mean Corpuscular Volume 89.5 Mean Corpuscular Hemoglobin 28.3 L Mean Corpuscular Hemoglobin Concent 31.7 L Red Cell Distribution Width 14.5 Platelet Count 189 Mean Platelet Volume 12.1 H Immature Granulocytes % 0.200 Neutrophils % 64.2 Lymphocytes % 18.2 Monocytes % 11.8 H Eosinophils % 5.0 Basophils % 0.6 Nucleated Red Blood Cells % 0.0 Immature Granulocytes # 0.020 Neutrophils # 5.3 Lymphocytes # 1.5 Monocytes # 1.0 H Eosinophils # 0.4 Basophils # 0.1 Nucleated Red Blood Cells # 0.0 Sodium Level 141 Potassium Level 4.1 Chloride Level 106 Carbon Dioxide Level 30 Anion Gap 5 Blood Urea Nitrogen 34 H Creatinine 1.78 H Est Glomerular Filtrat Rate mL/min Glucose Level 96 Calcium Level 8.6 Magnesium Level 2.3 Total Bilirubin 0.5 Direct Bilirubin 0.00 Indirect Bilirubin 0.5 Aspartate Amino Transf (AST/SGOT) 29 Alanine Aminotransferase (ALT/SGPT) 83 H Alkaline Phosphatase 123 H B-Type Natriuretic Peptide 3740 H Total Protein 6.3 Albumin 3.3 Globulin 3.00 Albumin/Globulin Ratio 1.10 Thyroid Stimulating Hormone (TSH) 0.030 L Free Thyroxine 1.69 Hepatitis B Surface Antigen NEGATIVE Hepatitis B Surface Antibody NEGATIVE Hepatitis C Antibody NEGATIVE Medications Medication Current Medications IV Flush (NS 3 ml) 3 ml PER PROTOCOL IV ; Start 12/11/18 at 20:30 Ondansetron HCl (Zofran Inj) 4 mg Q6H PRN IV NAUSEA/VOMITING; Start 12/11/18 at 20:30 Nitroglycerin (Nitroglycerin (Sl Tab) 0.4 Mg) 1 tab Q5M PRN SL .CHEST PAIN; Start 12/11/18 at 20:30 Acetaminophen (Tylenol Tab) 650 mg Q6H PRN PO .PAIN 1-3 OR TEMP; Start 12/11/18 at 20:30 Bisacodyl (Dulcolax) 5 mg DAILY PRN PO .CONSTIPATION; Start 12/11/18 at 20:30 Heparin Sodium (Porcine) (Heparin (5000 Units/1ml)) 5,000 unit Q8 SC Last administered on 12/13/18at 07:01; Admin Dose 5,000 UNIT; Start 12/11/18 at 22:00 Furosemide (Lasix) 40 mg DAILY IV Last administered on 12/12/18 08:31; Admin Dose 40 MG; Start 12/12/18 at 09:00; Status Hold Atorvastatin Calcium (Lipitor) 20 mg QHS PO Last administered on 12/12/18 2 1:30; Admin Dose 20 MG; Start 12/12/18 at 21:00 Clopidogrel Bisulfate (plaVIX) 75 mg DAILY PO Last administered on 12/13/18 08:34; Admin Dose 75 MG; Start 12/12/18 at 09:00 Donepezil HCl (Aricept) 5 mg DAILY PO Last administered on 12/13/18 08:33; Admin Dose 5 MG; Start 12/12/18 at 09:00 Hydralazine HCl (Apresoline) 50 mg BID PO Last administered on 12/13/18 08:34; Admin Dose 50 MG; Start 12/12/18 at 09:00 Levothyroxine Sodium (Synthroid) 112 mcg BEFORE BREAKFAST PO Last administered on 12/12/18 07:16; Admin Dose 112 MCG; Start 12/12/18 at 07:00; Status Hold Memantine (Namenda) 10 mg DAILY PO Last administered on 12/13/18 08:34; Admin Dose 10 MG; Start 12/12/18 at 09:00 Clonidine (Catapres) 0.1 mg DAILY PRN PO ELEVATED BLOOD PRESSURE; Start 12/12/18 at 07:30 Docusate Sodium (Colace) 100 mg Q12H PO Last administered on 12/13/18 08:33; Admin Dose 100 MG; Start 12/12/18 at 20:30 OMER ALEGRIA December 13, 2018 11:49
--- NOTE | 2018-12-13 12:26 | CONS ---
Consult Date/Type/Reason Admit Date/Time December 11, 2018 at 19:17 Initial Consult Date 12/12/18 Type of Consultation: cv Requesting Provider: OMER ALEGRIA Date/Time of Note DATE: 12/13/18 TIME: 12:24 Subjective Cardiology follow-up progress note Subjective: Case discussed with the staff and telemetry was reviewed patient remains in normal sinus rhythm. Patient with no report of chest pain or pressure No report of PND orthopnea now Shortness of breath appears to be improving significantly Objective: General: Obese female no acute distress HEENT: NC/AT. pupils are equal. round. NECK: NO JVD. no stridor. CV: RRR. systolic murmur; no gallop or rubs. PULM: no wheezing or rhonchi. GI: SOFT, NT, ND, no rebound or guarding Extremity: trace B/L LE edema. no clubbing. neuro: awake and alert, Psych: calm and pleasant rectal: deferred : normal EKG was personally reviewed which shows sinus bradycardia nonspecific ST abnormalities Echocardiogram was also personally reviewed which shows: Normal left ventricular systolic function. Normal left ventricular cavity size. Mild concentric left ventricular hypertrophy. Ejection fraction is visually estimated at 65 %. Tissue Doppler/Mitral Doppler indices are consistent with pseudonormalization with mildly elevated left atrial pressure (Stage II diastolic dysfunction). Mild mitral leaflet calcification. Mild mitral annular calcification. Mild mitral valve regurgitation. No hemodynamically significant aortic stenosis by doppler. Aortic cusps appear mildly calcified. Trace aortic valve regurgitation. Normal appearance of the tricuspid valve. Estimated peak PA systolic pressure 44 mmHg. There is mild tricuspid regurgitation. There is an anterior echo free space consistent with epicardial fat pad. Left pleural effusion seen. Objective Vitals Vital Signs Date Temp Pulse Resp B/P (MAP) Pulse Ox O2 O2 Flow FiO2 Time Delivery Rate 12/13/18 98.9 63 16 125/60 93 11:10 (81) 12/13/18 Nasal 2.0 08:00 Cannula Intake and Output 12/12/18 12/12/18 12/13/18 1515:00 23:00 07:00 IntakeIntake Total 800 ml 240 ml BalanceBalance 800 ml 240 ml Results/Medications Result Diagram: 12/13/18 0456 12/13/18 0456 Results 24 hrs Laboratory Tests Test 12/13/18 04:56 White Blood Count 8.3 Red Blood Count 3.14 L Hemoglobin 8.9 L Hematocrit 28.1 L Mean Corpuscular Volume 89.5 Mean Corpuscular Hemoglobin 28.3 L Mean Corpuscular Hemoglobin Concent 31.7 L Red Cell Distribution Width 14.5 Platelet Count 189 Mean Platelet Volume 12.1 H Immature Granulocytes % 0.200 Neutrophils % 64.2 Lymphocytes % 18.2 Monocytes % 11.8 H Eosinophils % 5.0 Basophils % 0.6 Nucleated Red Blood Cells % 0.0 Immature Granulocytes # 0.020 Neutrophils # 5.3 Lymphocytes # 1.5 Monocytes # 1.0 H Eosinophils # 0.4 Basophils # 0.1 Nucleated Red Blood Cells # 0.0 Sodium Level 141 Potassium Level 4.1 Chloride Level 106 Carbon Dioxide Level 30 Anion Gap 5 Blood Urea Nitrogen 34 H Creatinine 1.78 H Est Glomerular Filtrat Rate mL/min Glucose Level 96 Calcium Level 8.6 Magnesium Level 2.3 Total Bilirubin 0.5 Direct Bilirubin 0.00 Indirect Bilirubin 0.5 Aspartate Amino Transf (AST/SGOT) 29 Alanine Aminotransferase (ALT/SGPT) 83 H Alkaline Phosphatase 123 H B-Type Natriuretic Peptide 3740 H Total Protein 6.3 Albumin 3.3 Globulin 3.00 Albumin/Globulin Ratio 1.10 Thyroid Stimulating Hormone (TSH) 0.030 L Free Thyroxine 1.69 Hepatitis B Surface Antigen NEGATIVE Hepatitis B Surface Antibody NEGATIVE Hepatitis C Antibody NEGATIVE Home Meds Reported Medications Zolpidem Tartrate* (Zolpidem Tartrate*) 10 Mg Tablet, 10 MG PO QHS PRN for I NSOMNIA, #30 TAB 12/11/18 Levothyroxine Sodium* (Levothyroxine Sodium*) 112 Mcg Tablet, 112 MCG PO BEFORE BREAKFAST, #30 TAB 12/11/18 Potassium Chloride* (K-Dur*) 10 Meq Tab.prt.sr, 10 MEQ PO DAILY, TAB 09/09/18 Sitagliptin* (Januvia*) 50 Mg Tablet, 50 MG PO DAILY, #30 TAB 09/09/18 Clopidogrel Bisulfate* (Clopidogrel Bisulfate*) 75 Mg Tablet, 75 MG PO DAILY, #30 TAB 09/09/18 Memantine* (Namenda*) 10 Mg Tablet, 10 MG PO DAILY, #30 TAB 09/09/18 Atorvastatin Calcium* (Atorvastatin Calcium*) 20 Mg Tablet, 20 MG PO QHS, #30 TAB 09/09/18 Donepezil* (Aricept*) 5 Mg Tablet, 5 MG PO DAILY, TAB 09/09/18 Furosemide* (Furosemide*) 20 Mg Tablet, 20 MG PO BID, #30 TAB 09/09/18 Clonidine Hcl* (Clonidine Hcl*) 0.1 Mg Tab, 0.1 MG PO NEEDED, TAB 09/09/18 Hydralazine Hcl* (Apresoline*) 50 Mg Tab, 50 MG PO BID, #90 TAB 09/09/18 Discontinued Reported Medications Levothyroxine Sodium* (Levothyroxine Sodium*) 137 Mcg Tablet, 137 MCG PO BEFORE BREAKFAST, #30 TAB 09/09/18 Medications Current Medications IV Flush (NS 3 ml) 3 ml PER PROTOCOL IV ; Start 12/11/18 at 20:30 Ondansetron HCl (Zofran Inj) 4 mg Q6H PRN IV NAUSEA/VOMITING; Start 12/11/18 at 20:30 Nitroglycerin (Nitroglycerin (Sl Tab) 0.4 Mg) 1 tab Q5M PRN SL .CHEST PAIN; Start 12/11/18 at 20:30 Acetaminophen (Tylenol Tab) 650 mg Q6H PRN PO .PAIN 1-3 OR TEMP; Start 12/11/18 at 20:30 Bisacodyl (Dulcolax) 5 mg DAILY PRN PO .CONSTIPATION; Start 12/11/18 at 20:30 Heparin Sodium (Porcine) (Heparin (5000 Units/1ml)) 5,000 unit Q8 SC Last administered on 12/13/18at 07:01; Admin Dose 5,000 UNIT; Start 12/11/18 at 22:00 Furosemide (Lasix) 40 mg DAILY IV Last administered on 12/12/18at 08:31; Admin Dose 40 MG; Start 12/12/18 at 09:00; Status Hold Atorvastatin Calcium (Lipitor) 20 mg QHS PO Last administered on 12/12/18at 21:30; Admin Dose 20 MG; Start 12/12/18 at 21:00 Clopidogrel Bisulfate (plaVIX) 75 mg DAILY PO Last administered on 12/13/18at 08:34; Admin Dose 75 MG; Start 12/12/18 at 09:00 Donepezil HCl (Aricept) 5 mg DAILY PO Last administered on 12/13/18at 08:33; Admin Dose 5 MG; Start 12/12/18 at 09:00 Hydralazine HCl (Apresoline) 50 mg BID PO Last administered on 12/13/18 08:34; Admin Dose 50 MG; Start 12/12/18 at 09:00 Levothyroxine Sodium (Synthroid) 112 mcg BEFORE BREAKFAST PO Last administered on 12/12/18 07:16; Admin Dose 112 MCG; Start 12/12/18 at 07:00; Status Hold Memantine (Namenda) 10 mg DAILY PO Last administered on 12/13/18 08:34; Admin Dose 10 MG; Start 12/12/18 at 09:00 Clonidine (Catapres) 0.1 mg DAILY PRN PO ELEVATED BLOOD PRESSURE; Start 12/12/18 at 07:30 Docusate Sodium (Colace) 100 mg Q12H PO Last administered on 12/13/18 08:33; Admin Dose 100 MG; Start 12/12/18 at 20:30 Assessment/Plan Hospital Course (Demo Recall) 1. CHF: acute on chronic due to diastolic heart failure 2. HTN urgency 3. LOUIE 4. Dyslipidemia 5. thyroid d/o 6. memeory impairment 7. Marked sinus bradycardia currently is probably secondary to Bystolic: improved now REC HOLD IV LASIX NOW AND F/U renal fx echo reviewed cont BP control hold off on ARB due to LOUIE Thyroid management as per internal medicine. Thank you for this referral. We will continue to follow along with you CHRISTIANO PEREIRA MD [facility] CHRISTIANO PEREIRA MD December 13, 2018 12:26
--- NOTE | 2018-12-13 18:45 | CONS ---
DATE OF ADMISSION: 12/11/2018 DATE OF CONSULTATION: 12/13/2018 TYPE OF CONSULTATION: Nephrology. REASON FOR CONSULTATION: Acute kidney injury. PHYSICIAN REQUESTING CONSULT: Dr. Alegria. HISTORY OF PRESENT ILLNESS: This is an 88-year-old female with a past medical history of chronic kid dennise disease with a baseline creatinine around 1.5 and 1.7 mg/dL, history of diabetes, hypothyroidism, dementia, history of hypertension who presents to [facility] with generalized weak ness, increased shortness of breath and lower extremity edema. The patient states that over the past several days she has noted increased swelling of lower extremity, 2-pillow orthopnea. The patient a lso noted more weakness. The patient as a result came to the emergency room. In the emergency room, the patient had a chest x-ray which showed findings of mild increased pulmonary vascularity. The courtney villalba was diagnosed with CHF, was placed on diuretic therapy and admitted to telemetry for evaluation . In terms of patient's renal history, on admission, the patient's creatinine of 1.3 mg/dL, which is in creased to 1.8 mg/dL over the course of 48 hours. The patient during this time has been receiving di uretic therapy. There have been no reports of any hemoptysis, hematemesis or hematochezia. PAST MEDICAL HISTORY: As stated above, history of CKD stage III, history of hypertension, history of diabetes, hypothyroidism. PAST SURGICAL HISTORY: History of colon resection. FAMILY HISTORY: No family history of kidney disease. SOCIAL HISTORY: Does not drink, smoke or do drugs. MEDICATIONS: The patient's medications have been reviewed. ALLERGIES: Have been reviewed. NO KNOWN DRUG ALLERGIES. REVIEW OF SYSTEMS: A 14-point review of systems was conducted. Pertinent positives stated in HPI, o therwise negative. PHYSICAL EXAMINATION: VITAL SIGNS: Blood pressure 132/60, respirations 16, pulse 55, temperature 97.9. HEENT: Head is normocephalic. NECK: Supple. HEART: Regular rate. LUNGS: Show diminished breath sounds at the base. ABDOMEN: Soft, nontender to palpation. No rebound or guarding. EXTREMITIES: Negative for clubbing, cyanosis. Trace edema. DERMATOLOGIC: No rashes. MUSCULOSKELETAL: No joint effusion. NEUROLOGIC: No change in exam. MEDICATIONS: The patient's medications are reviewed. LABORATORY DATA: Has been reviewed. ASSESSMENT AND PLAN: This is an 88-year-old female present with: 1. Nonoliguric acute kidney injury on top of chronic kidney disease with a previous baseline creatin ine of 1.5 to 1.7 mg/dL. Etiology of acute kidney injury is multifactorial secondary to hemodynamics , diuretics, possible cardiorenal syndrome. Lower suspicion for acute glomerulonephritis or vasculit is given patient's clinical presentation. Recommendation is to do a full evaluation. Check UA with microanalysis, check urine electrolytes, check a renal ultrasound. We will continue current treatmen t plan, supportive care, renally dose all medication. Would recommend to deescalate or hold diuretic therapy as renal function has further declined. We will monitor closely. 2. Acute diastolic heart failure. The patient is clinically improving. We will continue current me dical management, deescalate diuretic therapy as stated above. Would otherwise continue treatment pl ans, supportive care, renally dose all medication. 3. Anemia. Monitor hemoglobin and hematocrit levels. 4. Mineral bone disorder. Monitor calcium and phosphorus levels. 5. Hypertension. Continue current blood pressure regimen. We defer any CLAUDETTE inhibitor or ARB at thi s time until renal function has stabilized. 6. Hypothyroidism. Continue current medical management. Thank you, Dr. Alegria, for this interesting consult. It will be a pleasure to follow patient with criss mendiolaout the hospital course. Dictated By: RADHA ZHANG DO NR/NTS Conf#: [id number] DID#: [id number] CC: OMER ALEGRIA MD; GURPREET LEVINE MD;*End*
[2018-12-13] MEDS: ATORVASTATIN 20 MG TAB PO SCH (21:37)
[2018-12-14] VITALS (11 sets, daily range): BP systolic 121–183; BP diastolic 54–74; PULSE 49–76; RESP 16–18
[2018-12-14] MEDS: HEPARIN 5,000 UNIT/1 ML VIAL SC SCH ×3 (06:20→21:58)
[2018-12-14] MEDS: CLOPIDOGREL 75 MG TAB PO SCH (08:38)
[2018-12-14] MEDS: MEMANTINE 10 MG TAB PO SCH (08:38)
[2018-12-14] MEDS: DOCUSATE SODIUM 100 MG CAP PO SCH ×2 (08:38→21:51)
[2018-12-14] MEDS: DONEPEZIL 5 MG TAB PO SCH (08:38)
--- NOTE | 2018-12-14 08:42 | CONS ---
Consult Date/Type/Reason Admit Date/Time December 11, 2018 at 19:17 Initial Consult Date 12/12/18 Type of Consultation: cv Requesting Provider: OMER ALEGRIA Date/Time of Note DATE: 12/14/18 TIME: 08:39 Subjective Cardiology follow-up progress note Subjective: Case discussed with the staff and telemetry was reviewed patient remains in normal sinus rhythm. Patient with no report of chest pain or pressure No report of PND orthopnea now pt with constipation Objective: General: Obese female no acute distress HEENT: NC/AT. pupils are equal. round. NECK: NO JVD. no stridor. CV: RRR. systolic murmur; no gallop or rubs. PULM: no wheezing mild rhonchi. GI: SOFT, NT, ND, no rebound or guarding Extremity: trace B/L LE edema. no clubbing. neuro: awake and alert, Psych: calm and pleasant rectal: deferred : normal EKG was personally reviewed which shows sinus bradycardia nonspecific ST abnormalities Echocardiogram was also personally reviewed which shows: Normal left ventricular systolic function. Normal left ventricular cavity size. Mild concentric left ventricular hypertrophy. Ejection fraction is visually estimated at 65 %. Tissue Doppler/Mitral Doppler indices are consistent with pseudonormalization with mildly elevated left atrial pressure (Stage II diastolic dysfunction). Mild mitral leaflet calcification. Mild mitral annular calcification. Mild mitral valve regurgitation. No hemodynamically significant aortic stenosis by doppler. Aortic cusps appear mildly calcified. Trace aortic valve regurgitation. Normal appearance of the tricuspid valve. Estimated peak PA systolic pressure 44 mmHg. There is mild tricuspid regurgitation. There is an anterior echo free space consistent with epicardial fat pad. Left pleural effusion seen. Objective Vitals Vital Signs Date Temp Pulse Resp B/P (MAP) Pulse Ox O2 O2 Flow FiO2 Time Delivery Rate 12/14/18 97.3 60 17 157/69 92 07:44 (98) 12/14/18 Nasal 2.0 03:58 Cannula Intake and Output 12/13/18 12/13/18 12/14/18 1515:00 23:00 07:00 IntakeIntake Total 900 ml 400 ml OutputOutput Total 800 ml BalanceBalance 900 ml -400 ml Results/Medications Result Diagram: 12/14/1851812/14/18518 Results 24 hrs Laboratory Tests Test 12/13/18 20:45 12/14/18 05:19 Urine Color YELLOW Urine Clarity CLEAR Urine pH 5.0 Urine Specific [place] 1.013 Urine Ketones NEGATIVE Urine Nitrite NEGATIVE Urine Bilirubin NEGATIVE Urine Urobilinogen NEGATIVE Urine Leukocyte Esterase 1+ H Urine Microscopic RBC 0 Urine Microscopic WBC 3 Urine Hemoglobin NEGATIVE Urine Random Creatinine 99.98 Urine Random Sodium 34 Urine Glucose NEGATIVE Urine Total Protein 10.0 White Blood Count 6.9 Red Blood Count 2.96 L Hemoglobin 8.4 L Hematocrit 26.9 L Mean Corpuscular Volume 90.9 Mean Corpuscular Hemoglobin 28.4 L Mean Corpuscular Hemoglobin Concent 31.2 L Red Cell Distribution Width 14.5 Platelet Count 186 Mean Platelet Volume 12.5 H Immature Granulocytes % 0.100 Neutrophils % 58.1 Lymphocytes % 21.9 Monocytes % 13.5 H Eosinophils % 5.4 Basophils % 1.0 Nucleated Red Blood Cells % 0.0 Immature Granulocytes # 0.010 Neutrophils # 4.0 Lymphocytes # 1.5 Monocytes # 0.9 Eosinophils # 0.4 Basophils # 0.1 Nucleated Red Blood Cells # 0.0 Sodium Level 142 Potassium Level 4.3 Chloride Level 107 Carbon Dioxide Level 30 Anion Gap 5 Blood Urea Nitrogen 37 H Creatinine 1.75 H Est Glomerular Filtrat Rate mL/min Glucose Level 90 Calcium Level 8.4 Magnesium Level 2.3 B-Type Natriuretic Peptide 2740 H Home Meds Reported Medications Zolpidem Tartrate* (Zolpidem Tartrate*) 10 Mg Tablet, 10 MG PO QHS PRN for INSOMNIA, #30 TAB 12/11/18 Levothyroxine Sodium* (Levothyroxine Sodium*) 112 Mcg Tablet, 112 MCG PO BEFORE BREAKFAST, #30 TAB 12/11/18 Potassium Chloride* (K-Dur*) 10 Meq Tab.prt.sr, 10 MEQ PO DAILY, TAB 09/09/18 Sitagliptin* (Januvia*) 50 Mg Tablet, 50 MG PO DAILY, #30 TAB 09/09/18 Clopidogrel Bisulfate* (Clopidogrel Bisulfate*) 75 Mg Tablet, 75 MG PO DAILY, #30 TAB 09/09/18 Memantine* (Namenda*) 10 Mg Tablet, 10 MG PO DAILY, #30 TAB 09/09/18 Atorvastatin Calcium* (Atorvastatin Calcium*) 20 Mg Tablet, 20 MG PO QHS, #30 TAB 09/09/18 Donepezil* (Aricept*) 5 Mg Tablet, 5 MG PO DAILY, TAB 09/09/18 Furosemide* (Furosemide*) 20 Mg Tablet, 20 MG PO BID, #30 TAB 09/09/18 Clonidine Hcl* (Clonidine Hcl*) 0.1 Mg Tab, 0.1 MG PO NEEDED, TAB 09/09/18 Hydralazine Hcl* (Apresoline*) 50 Mg Tab, 50 MG PO BID, #90 TAB 09/09/18 Discontinued Reported Medications Levothyroxine Sodium* (Levothyroxine Sodium*) 137 Mcg Tablet, 137 MCG PO BEFORE BREAKFAST, #30 TAB 09/09/18 Medications Current Medications IV Flush (NS 3 ml) 3 ml PER PROTOCOL IV ; Start 12/11/18 at 20:30 Ondansetron HCl (Zofran Inj) 4 mg Q6H PRN IV NAUSEA/VOMITING; Start 12/11/18 at 20:30 Nitroglycerin (Nitroglycerin (Sl Tab) 0.4 Mg) 1 tab Q5M PRN SL .CHEST PAIN; Start 12/11/18 at 20:30 Acetaminophen (Tylenol Tab) 650 mg Q6H PRN PO .PAIN 1-3 OR TEMP; Start 12/11/18 at 20:30 Bisacodyl (Dulcolax) 5 mg DAILY PRN PO .CONSTIPATION; Start 12/11/18 at 20:30 Heparin Sodium (Porcine) (Heparin (5000 Units/1ml)) 5,000 unit Q8 SC Last administered on 12/14/18at 06:20; Admin Dose 5,000 UNIT; Start 12/11/18 at 22:00 Furosemide (Lasix) 40 mg DAILY IV Last administered on 12/12/18at 08:31; Admin Dose 40 MG; Start 12/12/18 at 09:00; Status Hold Atorvastatin Calcium (Lipitor) 20 mg QHS PO Last administered on 12/13/18at 21:37; Admin Dose 20 MG; Start 12/12/18 at 21:00 Clopidogrel Bisulfate (plaVIX) 75 mg DAILY PO Last administered on 12/13/18at 08:34; Admin Dose 75 MG; Start 12/12/18 at 09:00 Donepezil HCl (Aricept) 5 mg DAILY PO Last administered on 12/13/18at 08:33; Admin Dose 5 MG; Start 12/12/18 at 09:00 Hydralazine HCl (Apresoline) 50 mg BID PO Last administered on 12/13/18 21:39; Admin Dose 50 MG; Start 12/12/18 at 09:00 Levothyroxine Sodium (Synthroid) 112 mcg BEFORE BREAKFAST PO Last administered on 12/12/18 07:16; Admin Dose 112 MCG; Start 12/12/18 at 07:00; Status Hold Memantine (Namenda) 10 mg DAILY PO Last administered on 12/13/18at 08:34; Admin Dose 10 MG; Start 12/12/18 at 09:00 Clonidine (Catapres) 0.1 mg DAILY PRN PO ELEVATED BLOOD PRESSURE; Start 12/12/18 at 07:30 Docusate Sodium (Colace) 100 mg Q12H PO Last administered on 12/13/18at 21:37; Admin Dose 100 MG; Start 12/12/18 at 20:30 Assessment/Plan Hospital Course (Demo Recall) 1. CHF: acute on chronic due to diastolic heart failure 2. HTN urgency 3. LOUIE 4. Dyslipidemia 5. thyroid d/o 6. memeory impairment 7. Marked sinus bradycardia currently is probably secondary to Bystolic: improved now REC diuresis as per renal rec given her LOUIE echo reviewed cont BP control but currently off on ARB due to LOUIE Thyroid management as per internal medicine. Will check CXR Thank you for this referral. We will continue to follow along with you CHRISTIANO PEREIRA MD [facility] CHRISTIANO PEREIRA MD December 14, 2018 08:42
--- NOTE | 2018-12-14 11:32 | PN ---
Date/Time of Note Date/Time of Note DATE: 12/14/18 TIME: 11:26 Assessment/Plan VTE Prophylaxis Risk score (from Nsg)>0 risk: 6 SCD applied (from Nsg): Yes Pharmacological prophylaxis: heparin Lines/Catheters IV Catheter Type (from Nrs): Saline Lock Urinary Cath still in place: No Assessment/Plan Hospital Course 88-year-old female who presented to the emergency room with lethargy, shortness of breath and orthopnea admitted and managed as follows: 1. Acute resp failure 2/2 CHF exacerbation -Family had no prior knowledge of CHF diagnosis, though patient was mainta ined on Lasix therapy outpatient -patient on 2L O2 via NC -ongoing diuresis, wean off O2 2. Poorly controlled hypertension: -Per family, patient had medications with change from hydralazine twice daily to a beta-rj and ARB (bystolic/avapro) combination just a week ago -Since patient has been on this new regimen, blood pressure has been poorly controlled. -she is back on bid hydralazine with excellent inhouse control -Patient will however indeed benefit from beta-rj and ARB therapy. -We will however defer to cardiology and nephrology, as patient is with LOUIE and with sinus ksenia with CHF exacerbation at this time -Continue current regimen for now 3. Sinus bradycardia: -Likely secondary to new beta-rj therapy -Patient is off AV sravanthi blockers at this time as an inpatient 4. Chronic kidney disease: Baseline creatinine somewhere between 1.2 and 1.6? -LOUIE? 5. Mild transaminitis, with ALT elevation, new onset, significance unclear. Patient also has elevated alkaline phosphatase, also new -Last liver ultrasound, November 2017 showed no hepatomegaly with normal echogenicity. will repeat -hepatitis screen? 6. Hypochromic anemia: Chronic, stable 7. Hypothyroidism: too tight control - TSH is likely reflective of too tight control of hypothyroidism. resume at reduced dose 8. History of dementia on Namenda 9. Patient on Plavix therapy, history of PCI? Plan: -monitor inhouse for now 2/2 renal function, also wean off O2 -plan to dc tomorrow if cleared by renal -Further interventions per course Result Diagram: 12/14/1851812/14/18518 Results 24hrs Laboratory Tests Test 12/13/18 20:45 12/14/18 05:19 Urine Color YELLOW Urine Clarity CLEAR Urine pH 5.0 Urine Specific Lawrence 1.013 Urine Ketones NEGATIVE Urine Nitrite NEGATIVE Urine Bilirubin NEGATIVE Urine Urobilinogen NEGATIVE Urine Leukocyte Esterase 1+ H Urine Microscopic RBC 0 Urine Microscopic WBC 3 Urine Hemoglobin NEGATIVE Urine Random Creatinine 99.98 Urine Random Sodium 34 Urine Glucose NEGATIVE Urine Total Protein 10.0 White Blood Count 6.9 Red Blood Count 2.96 L Hemoglobin 8.4 L Hematocrit 26.9 L Mean Corpuscular Volume 90.9 Mean Corpuscular Hemoglobin 28.4 L Mean Corpuscular Hemoglobin Concent 31.2 L Red Cell Distribution Width 14.5 Platelet Count 186 Mean Platelet Volume 12.5 H Immature Granulocytes % 0.100 Neutrophils % 58.1 Lymphocytes % 21.9 Monocytes % 13.5 H Eosinophils % 5.4 Basophils % 1.0 Nucleated Red Blood Cells % 0.0 Immature Granulocytes # 0.010 Neutrophils # 4.0 Lymphocytes # 1.5 Monocytes # 0.9 Eosinophils # 0.4 Basophils # 0.1 Nucleated Red Blood Cells # 0.0 Sodium Level 142 Potassium Level 4.3 Chloride Level 107 Carbon Dioxide Level 30 Anion Gap 5 Blood Urea Nitrogen 37 H Creatinine 1.75 H Est Glomerular Filtrat Rate mL/min Glucose Level 90 Calcium Level 8.4 Magnesium Level 2.3 B-Type Natriuretic Peptide 2740 H Subjective 24 Hr Interval Summary Free Text/Dictation constipation Exam/Review of Systems Exam Vitals Vital Signs Date Temp Pulse Resp B/P (MAP) Pulse Ox O2 O2 Flow FiO2 Time Delivery Rate 12/14/18 97.7 60 16 157/67 97 11:18 (97) 12/14/18 Nasal 2.0 03:58 Cannula Intake and Output 12/13/18 12/13/18 12/14/18 1515:00 23:00 07:00 IntakeIntake Total 900 ml 400 ml OutputOutput Total 800 ml BalanceBalance 900 ml -400 ml Exam General: A&O x3, answering questions appropriately, elderly, good mood HEENT: NC/ AT. PERRL. EOM intact Neck: supple CVS: S1, S2, RRR. no murmurs. no pain on chest wall palpation Lungs: CTA b/l. no wheezing or rhonchi Abd: soft, nontender, +BS Ext: moving all extremities skin: no rashes Results Results 24hrs Laboratory Tests Test 12/13/18 20:45 12/14/18 05:19 Urine Color YELLOW Urine Clarity CLEAR Urine pH 5.0 Urine Specific Lawrence 1.013 Urine Ketones NEGATIVE Urine Nitrite NEGATIVE Urine Bilirubin NEGATIVE Urine Urobilinogen NEGATIVE Urine Leukocyte Esterase 1+ H Urine Microscopic RBC 0 Urine Microscopic WBC 3 Urine Hemoglobin NEGATIVE Urine Random Creatinine 99.98 Urine Random Sodium 34 Urine Glucose NEGATIVE Urine Total Protein 10.0 White Blood Count 6.9 Red Blood Count 2.96 L Hemoglobin 8.4 L Hematocrit 26.9 L Mean Corpuscular Volume 90.9 Mean Corpuscular Hemoglobin 28.4 L Mean Corpuscular Hemoglobin Concent 31.2 L Red Cell Distribution Width 14.5 Platelet Count 186 Mean Platelet Volume 12.5 H Immature Granulocytes % 0.100 Neutrophils % 58.1 Lymphocytes % 21.9 Monocytes % 13.5 H Eosinophils % 5.4 Basophils % 1.0 Nucleated Red Blood Cells % 0.0 Immature Granulocytes # 0.010 Neutrophils # 4.0 Lymphocytes # 1.5 Monocytes # 0.9 Eosinophils # 0.4 Basophils # 0.1 Nucleated Red Blood Cells # 0.0 Sodium Level 142 Potassium Level 4.3 Chloride Level 107 Carbon Dioxide Level 30 Anion Gap 5 Blood Urea Nitrogen 37 H Creatinine 1.75 H Est Glomerular Filtrat Rate mL/min Glucose Level 90 Calcium Level 8.4 Magnesium Level 2.3 B-Type Natriuretic Peptide 2740 H Medications Medication Current Medications IV Flush (NS 3 ml) 3 ml PER PROTOCOL IV ; Start 12/11/18 at 20:30 Ondansetron HCl (Zofran Inj) 4 mg Q6H PRN IV NAUSEA/VOMITING; Start 12/11/18 at 20:30 Nitroglycerin (Nitroglycerin (Sl Tab) 0.4 Mg) 1 tab Q5M PRN SL .CHEST PAIN; Start 12/11/18 at 20:30 Acetaminophen (Tylenol Tab) 650 mg Q6H PRN PO .PAIN 1-3 OR TEMP; Start 12/11/18 at 20:30 Bisacodyl (Dulcolax) 5 mg DAILY PRN PO .CONSTIPATION Last administered on 12/14/18at 08:38; Admin Dose 5 MG; Start 12/11/18 at 20:30 Heparin Sodium (Porcine) (Heparin (5000 Units/1ml)) 5,000 unit Q8 SC Last administered on 12/14/18at 06:20; Admin Dose 5,000 UNIT; Start 12/11/18 at 22:00 Atorvastatin Calcium (Lipitor) 20 mg QHS PO Last administered on 12/13/18 21:37; Admin Dose 20 MG; Start 12/12/18 at 21:00 Clopidogrel Bisulfate (plaVIX) 75 mg DAILY PO Last administered on 12/14/18 08:38; Admin Dose 75 MG; Start 12/12/18 at 09:00 Donepezil HCl (Aricept) 5 mg DAILY PO Last administered on 12/14/18 08:38; Admin Dose 5 MG; Start 12/12/18 at 09:00 Hydralazine HCl (Apresoline) 50 mg BID PO Last administered on 12/14/18 08:38; Admin Dose 50 MG; Start 12/12/18 at 09:00 Levothyroxine Sodium (Synthroid) 112 mcg BEFORE BREAKFAST PO Last administered on 12/12/18 07:16; Admin Dose 112 MCG; Start 12/12/18 at 07:00; Status Hold Memantine (Namenda) 10 mg DAILY PO Last administered on 12/14/18 08:38; Admin Dose 10 MG; Start 12/12/18 at 09:00 Clonidine (Catapres) 0.1 mg DAILY PRN PO ELEVATED BLOOD PRESSURE; Start 12/12/18 at 07:30 Docusate Sodium (Colace) 100 mg Q12H PO Last administered on 12/14/18 08:38; Admin Dose 100 MG; Start 12/12/18 at 20:30 Furosemide (Lasix) 20 mg DAILY PO ; Start 12/15/18 at 09:00 OMER ALEGRIA December 14, 2018 11:32
--- NOTE | 2018-12-14 13:40 | PN ---
DATE: 12/14/2018 SUBJECTIVE: The patient is stable, resting comfortably, no acute events noted overnight. OBJECTIVE: VITAL SIGNS: Blood pressure is 157/69, respirations 17, pulse 60, temperature 97.3. HEENT: Head is normocephalic. NECK: Supple. HEART: Regular rate. LUNGS: Show diminished breath sounds at the base. ABDOMEN: Soft, nontender to palpation. No rebound or guarding. EXTREMITIES: Negative for clubbing, cyanosis. Trace edema. DERMATOLOGIC: No rashes. MUSCULOSKELETAL: No joint effusion. NEUROLOGIC: No change in exam. MEDICATIONS: The patient's medications have been reviewed. LABORATORY DATA: Has been reviewed. ASSESSMENT AND PLAN: 1. Nonoliguric acute kidney injury on top of chronic kidney disease with previous baseline creatinin e of 1.5 to 1.7 mg/dL. Etiology of LOUIE is secondary to hemodynamics, diuretics. The patient's karan l function has been stable in the last 24 hours. Urinalysis: No evidence of active sediment. The p sheridan's renal ultrasound was reviewed that showed increased echogenicity consistent with chronic kid dennise disease. Recommendation is to continue current medical management, monitor closely on diuretic t herapy. Otherwise, continue supportive care, renally dose all medications, avoid nephrotoxins. 2. Chronic kidney disease. Etiology is likely multifactorial secondary to diabetes, hypertension. The patient is currently in acute kidney injury as stated above. Continue current treatment plan. 3. Acute diastolic heart rate. The patient is clinically improving. The patient appears euvolemic. Will deescalate diuretic therapy. 4. Anemia. Monitor hemoglobin and hematocrit levels. 5. Hypertension. Continue current blood pressure regimen. Defer any angiotensin-converting enzyme inhibitor or angiotensin receptor rj at this time. 6. Hypothyroidism. Continue Synthroid. Dictated By: RADHA MELARA/NTS Conf#: [id number] DID#: [id number]
[2018-12-14] MEDS: ATORVASTATIN 20 MG TAB PO SCH (21:51)
[2018-12-15 00:13] VITALS: BP 125/57; PULSE 60; RESP 18
[2018-12-15 04:03] VITALS: BP 117/70; PULSE 66; RESP 18
[2018-12-15] MEDS: HEPARIN 5,000 UNIT/1 ML VIAL SC SCH (06:47)
[2018-12-15 07:29] VITALS: BP 151/67; PULSE 68; RESP 18
--- NOTE | 2018-12-15 08:45 | CONS ---
Consult Date/Type/Reason Admit Date/Time December 11, 2018 at 19:17 Initial Consult Date 12/12/18 Type of Consultation: cv Requesting Provider: OMER ALEGRIA Date/Time of Note DATE: 12/15/18 TIME: 08:43 Subjective Cardiology follow-up progress note Subjective: Case discussed with the staff and telemetry was reviewed patient remains in normal sinus rhythm. Patient with no report of chest pain or pressure No PND orthopnea now no abd pain Objective: General: Obese female no acute distress HEENT: NC/AT. pupils are equal. round. NECK: NO JVD. no stridor. CV: RRR. systolic murmur; no gallop or rubs. PULM: no wheezing mild rhonchi. GI: SOFT, NT, ND, no rebound or guarding Extremity: trace B/L LE edema. no clubbing. neuro: awake and alert, Psych: calm and pleasant rectal: deferred : normal EKG was personally reviewed which shows sinus bradycardia nonspecific ST abnormalities Echocardiogram was also personally reviewed which shows: Normal left ventricular systolic function. Normal left ventricular cavity size. Mild concentric left ventricular hypertrophy. Ejection fraction is visually estimated at 65 %. Tissue Doppler/Mitral Doppler indices are consistent with pseudonormalization with mildly elevated left atrial pressure (Stage II diastolic dysfunction). Mild mitral leaflet calcification. Mild mitral annular calcification. Mild mitral valve regurgitation. No hemodynamically significant aortic stenosis by doppler. Aortic cusps appear mildly calcified. Trace aortic valve regurgitation. Normal appearance of the tricuspid valve. Estimated peak PA systolic pressure 44 mmHg. There is mild tricuspid regurgitation. There is an anterior echo free space consistent with epicardial fat pad. Left pleural effusion seen. Objective Vitals Vital Signs Date Temp Pulse Resp B/P (MAP) Pulse Ox O2 O2 Flow FiO2 Time Delivery Rate 12/15/18 97.5 68 18 151/67 90 Room Air 07:29 (95) 12/14/18 2.0 20:10 Intake and Output 12/14/18 12/14/18 12/15/18 1515:00 23:00 07:00 IntakeIntake Total 850 ml 500 ml BalanceBalance 850 ml 500 ml Results/Medications Result Diagram: 12/15/18 0526 12/15/18 0518 Results 24 hrs Laboratory Tests Test 12/15/18 05:26 White Blood Count 5.8 Red Blood Count 3.03 L Hemoglobin 8.5 L Hematocrit 27.3 L Mean Corpuscular Volume 90.1 Mean Corpuscular Hemoglobin 28.1 L Mean Corpuscular Hemoglobin Concent 31.1 L Red Cell Distribution Width 14.3 Platelet Count 190 Mean Platelet Volume 10.8 H Immature Granulocytes % 0.200 Neutrophils % 59.1 Lymphocytes % 19.8 Monocytes % 14.6 H Eosinophils % 5.4 Basophils % 0.9 Nucleated Red Blood Cells % 0.0 Immature Granulocytes # 0.010 Neutrophils # 3.4 Lymphocytes # 1.1 Monocytes # 0.8 Eosinophils # 0.3 Basophils # 0.1 Nucleated Red Blood Cells # 0.0 Sodium Level 143 Potassium Level 4.3 Chloride Level 110 Carbon Dioxide Level 29 Anion Gap 4 L Blood Urea Nitrogen 33 H Creatinine 1.51 H Est Glomerular Filtrat Rate mL/min Glucose Level 100 Calcium Level 8.6 Phosphorus Level 3.8 Magnesium Level 2.3 Home Meds Reported Medications Zolpidem Tartrate* (Zolpidem Tartrate*) 10 Mg Tablet, 10 MG PO QHS PRN for INSOMNIA, #30 TAB 12/11/18 Levothyroxine Sodium* (Levothyroxine Sodium*) 112 Mcg Tablet, 112 MCG PO BEFORE BREAKFAST, #30 TAB 12/11/18 Potassium Chloride* (K-Dur*) 10 Meq Tab.prt.sr, 10 MEQ PO DAILY, TAB 09/09/18 Sitagliptin* (Januvia*) 50 Mg Tablet, 50 MG PO DAILY, #30 TAB 09/09/18 Clopidogrel Bisulfate* (Clopidogrel Bisulfate*) 75 Mg Tablet, 75 MG PO DAILY, #30 TAB 09/09/18 Memantine* (Namenda*) 10 Mg Tablet, 10 MG PO DAILY, #30 TAB 09/09/18 Atorvastatin Calcium* (Atorvastatin Calcium*) 20 Mg Tablet, 20 MG PO QHS, #30 TAB 09/09/18 Donepezil* (Aricept*) 5 Mg Tablet, 5 MG PO DAILY, TAB 09/09/18 Furosemide* (Furosemide*) 20 Mg Tablet, 20 MG PO BID, #30 TAB 09/09/18 Clonidine Hcl* (Clonidine Hcl*) 0.1 Mg Tab, 0.1 MG PO NEEDED, TAB 09/09/18 Hydralazine Hcl* (Apresoline*) 50 Mg Tab, 50 MG PO BID, #90 TAB 09/09/18 Discontinued Reported Medications Levothyroxine Sodium* (Levothyroxine Sodium*) 137 Mcg Tablet, 137 MCG PO BEFORE BREAKFAST, #30 TAB 09/09/18 Medications Current Medications IV Flush (NS 3 ml) 3 ml PER PROTOCOL IV ; Start 12/11/18 at 20:30 Ondansetron HCl (Zofran Inj) 4 mg Q6H PRN IV NAUSEA/VOMITING; Start 12/11/18 at 20:30 Nitroglycerin (Nitroglycerin (Sl Tab) 0.4 Mg) 1 tab Q5M PRN SL .CHEST PAIN; Start 12/11/18 at 20:30 Acetaminophen (Tylenol Tab) 650 mg Q6H PRN PO .PAIN 1-3 OR TEMP; Start 12/11/18 at 20:30 Bisacodyl (Dulcolax) 5 mg DAILY PRN PO .CONSTIPATION Last administered on 12/14/18 08:38; Admin Dose 5 MG; Start 12/11/18 at 20:30 Heparin Sodium (Porcine) (Heparin (5000 Units/1ml)) 5,000 unit Q8 SC Last administered on 12/15/18 06:47; Admin Dose 5,000 UNIT; Start 12/11/18 at 22:00 Atorvastatin Calcium (Lipitor) 20 mg QHS PO Last administered on 12/14/18 21:51; Admin Dose 20 MG; Start 12/12/18 at 21:00 Clopidogrel Bisulfate (plaVIX) 75 mg DAILY PO Last administered on 12/14/18 08:38; Admin Dose 75 MG; Start 12/12/18 at 09:00 Donepezil HCl (Aricept) 5 mg DAILY PO Last administered on 12/14/18 08:38; Admin Dose 5 MG; Start 12/12/18 at 09:00 Hydralazine HCl (Apresoline) 50 mg BID PO Last administered on 12/14/18 21:52; Admin Dose 50 MG; Start 12/12/18 at 09:00 Levothyroxine Sodium (Synthroid) 112 mcg BEFORE BREAKFAST PO Last administered on 12/12/18 07:16; Admin Dose 112 MCG; Start 12/12/18 at 07:00; Status Hold Memantine (Namenda) 10 mg DAILY PO Last administered on 12/14/18 08:38; Admin Dose 10 MG; Start 12/12/18 at 09:00 Clonidine (Catapres) 0.1 mg DAILY PRN PO ELEVATED BLOOD PRESSURE Last administered on 12/14/18 12:26; Admin Dose 0.1 MG; Start 12/12/18 at 07:30 Docusate Sodium (Colace) 100 mg Q12H PO Last administered on 12/14/18 21:51; Admin Dose 100 MG; Start 12/12/18 at 20:30 Furosemide (Lasix) 20 mg DAILY PO ; Start 12/15/18 at 09:00 Assessment/Plan Hospital Course (Demo Recall) 1. CHF: acute on chronic due to diastolic heart failure 2. HTN urgency 3. LOUIE 4. Dyslipidemia 5. thyroid d/o 6. memeory impairment 7. Marked sinus bradycardia currently is probably secondary to Bystolic: improved now REC diuresis as per renal rec given her LOUIE. cont on low dose lasix echo reviewed cont BP control but currently off on ARB due to LOUIE Thyroid management as per internal medicine. repeat CXR shows improvement dc planning when ok with IM Thank you for this referral. We will continue to follow along with you CHRISTIANO PEREIRA MD [facility] CHRISTIANO PEREIRA MD December 15, 2018 08:45
[2018-12-15] MEDS: CLOPIDOGREL 75 MG TAB PO SCH (08:54)
[2018-12-15] MEDS: MEMANTINE 10 MG TAB PO SCH (08:55)
[2018-12-15] MEDS: DOCUSATE SODIUM 100 MG CAP PO SCH (08:55)
[2018-12-15] MEDS: DONEPEZIL 5 MG TAB PO SCH (08:55)
[2018-12-15] MEDS ORDERED: FUROSEMIDE 20 MG TAB PO SCH (09:00)
--- NOTE | 2018-12-15 09:26 | PN ---
DATE: 12/15/2018 SUBJECTIVE: The patient is stable, no events overnight. OBJECTIVE: VITAL SIGNS: Blood pressure is 151/67, pulse 68, respirations 18, temperature 97.5. HEENT: Head is normocephalic. NECK: Supple. HEART: Regular rate. LUNGS: Show diminished breath sounds at the base. ABDOMEN: Soft, nontender to palpation. No rebound or guarding. EXTREMITIES: Negative for clubbing, cyanosis. No edema. DERMATOLOGIC: No rashes. MUSCULOSKELETAL: No joint effusion. NEUROLOGIC: No change in exam. MEDICATIONS: Reviewed. LABORATORY DATA: Reviewed. ASSESSMENT AND PLAN: 1. Nonoliguric acute kidney injury on top of chronic kidney disease with previous baseline creatinin e around 1.5 to 1.7 mg/dL. Etiology of acute kidney injury is secondary to hemodynamics. Renal func tion is improved after adjusting diuretic therapy. We will continue current treatment plan, supporti ve care, renally dose all medications. 2. Chronic kidney disease, etiology is likely multifactorial secondary to hypertension and diabetes. The patient is currently in acute kidney injury as stated above. Continue current treatment plan. Continue disease factor modification. 3. Acute diastolic heart failure, clinically improving. Continue low-dose diuretic therapy, maintai n euvolemia. 4. Anemia. Monitor hemoglobin and hematocrit levels. 5. Hypertension. Continue current blood pressure regimen. Defer any CLAUDETTE inhibitor or ARB at this t ayah. 6. Hypothyroidism. Continue Synthroid. Dictated By: RADHA ZHANG DO NR/NTS Conf#: [id number] DID#: [id number] CC: GURPREET LEVINE MD; CHRISTIANO PEREIRA MD; OMER ALEGRIA MD;*End*
--- NOTE | 2018-12-15 11:10 | PDOCDIS ---
Discharge Instructions CONDITION [id number] Patient Condition: [id number] Stable HOME CARE INSTRUCTIONS: [id number] Diet Instructions: [id number] Reduced Sodium ACTIVITY: [id number] Activity Restrictions: [id number] Slowly Increase Activity Rest between Activity FOLLOW UP/APPOINTMENTS Follow-up Plan 1. Do not take the Bystolic and Avapro anymore for now -The Bystolic caused your heart rate to go very low and the Avapro is not safe with the current state of your kidneys. -You may be able to take these medications in the future, let your outpatient doctors make that determination 2. You will need to be under the close care of a parboiler, teacher nursery school and spa manager/esthetician. Below is the information of the specialists who saw you while you in the hospital. 1. Medical Insurance Clerk: pharmaceutical sales specialist Name, Degree : Ryan Simeon MD Specialty : Cardiology Office Address : [address] [place] [address] Office Office 2. Language And Literature Division Chair: Kidney specialist Follow up with the teacher nursery school as below Name, Degree : Richardson Almodovar DO Specialty: Internal Medicine / Nephrology Office Address: [address] [place] [address] Office Office 3. Financial Legal Assistant: Lung specialist Name, Degree : Caden Shelton MD Specialty : Critical Care Medicine Office Address : [address] [place] [address] Office Office You may call their offices to schedule follow-up appointments, or you may ask your primary care doctor to refer you. 3. Review your medication list with your nurses before you leave. Take only the medications that we have asked you to take for now. Contact your doctor if you have any concerns or question. OMER ALEGRIA December 15, 2018 11:09
[2018-12-15] MEDS ORDERED: LEVO75TA5 PO (11:14)
[2018-12-15] MEDS ORDERED: FURO20TA3 PO (11:14)
[2018-12-15 11:15] VITALS: BP 145/63; PULSE 60; RESP 18
--- NOTE | 2018-12-15 11:20 | DS ---
Date/Time of Note Date/Time of Note DATE: 12/15/18 TIME: 11:19 Discharge Summary Admission/Discharge Info Admit Date/Time December 11, 2018 at 19:17 Discharge Date/Time Discharge Diagnosis 88-year-old female who presented to the emergency room with lethargy, shortness of breath and orthopnea admitted and managed as follows: 1. Acute resp failure 2/2 CHF exacerbation: improved with compensation 2. Poorly controlled hypertension: -Per family, patient had medications with change from hydralazine twice daily to a beta-rj and ARB (bystolic/avapro) combination just a week ago -Since patient has been on this new regimen, blood pressure has been poorly controlled. -she is back on bid hydralazine with excellent inhouse control -no BB 2/2 severe sinus ksenia and no arb for now 2/2 LOUIE 3. Sinus bradycardia: much improved -Likely secondary to new beta-rj therapy -Patient is off AV sravanthi blockers at this time as an inpatient 4. LOUIE on Chronic kidney disease: Baseline creatinine somewhere between 1.2 and 1.6: improved 5. Mild transaminitis, with ALT elevation, new onset, significance unclear. Patient also has elevated alkaline phosphatase, also new -Last liver ultrasound, November 2017 showed no hepatomegaly with normal echogenicity. -hepatitis screen negative 6. Hypochromic anemia: Chronic, stable 7. Hypothyroidism: too tight control - TSH is likely reflective of too tight control of hypothyroidism. resume at reduced dose 8. History of dementia on Namenda 9. Patient on Plavix therapy, history of PCI? . Patient Condition: Stable Consults . Cardiology: Ryan Simeon MD Nephrology: Richardson Billingsley MD . Hospital Course Thank you patient had serial labs imaging consistent with chronic stable hypochromic anemia, hemoglobin A1c came back 5.6, she did not require hypoglycemic therapy throughout her hospitalization. She was maintained on carb controlled diet. She she also had extensive renal function monitoring due to LOUIE, and at the time of discharge creatinine levels were trending down. LFTs were slightly elevated, but this trended down during her hospitalization. Levels are not quite back to normal yet, will recommend outpatient follow-up. She also had serial chest x-ray to monitor pulmonary congestion from CHF. 2D echo was done. Findings as summarized above. Urinalysis was not suggestive of UTI, no antibiotic therapy was recommended. Patient requires supplemental oxygen due to CHF. At this time she has been weaned down and is stable for discharge. TSH showed really tight control of her hypothyroidism and also her dosing was reduced. She was also with severe sinus bradycardia on telemetry likely secondary to outpatient beta-rj therapy. Beta-rj was held throughout hospitalization with improvement in heart rate. Patient has been evaluated by myself in detail and is stable for discharge. Home Meds Reported Medications Zolpidem Tartrate* (Zolpidem Tartrate*) 10 Mg Tablet, 10 MG PO QHS PRN for INSOMNIA, #30 TAB 12/11/18 Levothyroxine Sodium* (Levothyroxine Sodium*) 112 Mcg Tablet, 112 MCG PO BEFORE BREAKFAST, #30 TAB 12/11/18 Potassium Chloride* (K-Dur*) 10 Meq Tab.prt.sr, 10 MEQ PO DAILY, TAB 09/09/18 Sitagliptin* (Januvia*) 50 Mg Tablet, 50 MG PO DAILY, #30 TAB 09/09/18 Clopidogrel Bisulfate* (Clopidogrel Bisulfate*) 75 Mg Tablet, 75 MG PO DAILY, #30 TAB 09/09/18 Memantine* (Namenda*) 10 Mg Tablet, 10 MG PO DAILY, #30 TAB 09/09/18 Atorvastatin Calcium* (Atorvastatin Calcium*) 20 Mg Tablet, 20 MG PO QHS, #30 TAB 09/09/18 Donepezil* (Aricept*) 5 Mg Tablet, 5 MG PO DAILY, TAB 09/09/18 Furosemide* (Furosemide*) 20 Mg Tablet, 20 MG PO BID, #30 TAB 09/09/18 Clonidine Hcl* (Clonidine Hcl*) 0.1 Mg Tab, 0.1 MG PO NEEDED, TAB 09/09/18 Hydralazine Hcl* (Apresoline*) 50 Mg Tab, 50 MG PO BID, #90 TAB 09/09/18 Discontinued Reported Medications Levothyroxine Sodium* (Levothyroxine Sodium*) 137 Mcg Tablet, 137 MCG PO BEFORE BREAKFAST, #30 TAB 09/09/18 Follow-up Plan 1. Do not take the Bystolic and Avapro anymore for now -The Bystolic caused your heart rate to go very low and the Avapro is not safe with the current state of your kidneys. -You may be able to take these medications in the future, let your outpatient doctors make that determination 2. You will need to be under the close care of a shear assembler, filenet admin and supervisor labor gang. Below is the information of the specialists who saw you while you in the hospital. 1. Systems Technician: admissions specialist Name, Degree : Ryan Simeon MD Specialty : Cardiology Office Address : [id number] [facility] [address] [place] [address] Office Office 2. Canoe Builder: Kidney specialist Follow up with the filenet admin as below Name, Degree : Richardson Almodovar DO Specialty: Internal Medicine / Nephrology Office Address: [id number] [place] [address] Office Office 3. Asbestos Shingle Roofer: Lung specialist Name, Degree : Caden Shelton MD Specialty : Critical Care Medicine Office Address : [address] [place] [address] Office Office You may call their offices to schedule follow-up appointments, or you may ask yo primary care doctor to refer you. 3. Review your medication list with your nurses before you leave. Take only the medications that we have asked you to take for now. Contact your doctor if you have any concerns or question. Primary Care Provider Care Physician No Primary Time spent on discharge: > 30 minutes Pending Labs Laboratory Tests Test 12/15/18 05:26 White Blood Count 5.8 10^3/ul (4.8-10.8) Red Blood Count 3.03 10^6/ul (4.20-5.40) Hemoglobin 8.5 g/dl (12.0-16.0) Hematocrit 27.3 % (37.0-47.0) Mean Corpuscular Volume 90.1 fl (82.0-101.0) Mean Corpuscular Hemoglobin 28.1 pg (29.0-33.0) Mean Corpuscular Hemoglobin Concent 31.1 g/dl (32.0-37.0) Red Cell Distribution Width 14.3 % (11.5-14.5) Platelet Count 190 10^3/UL (140-415) Mean Platelet Volume 10.8 fl (7.4-10.4) Immature Granulocytes % 0.200 % (0.001-0.429) Neutrophils % 59.1 % (39.0-77.0) Lymphocytes % 19.8 % (15.0-51.0) Monocytes % 14.6 % (0.0-11.0) Eosinophils % 5.4 % (0.0-7.0) Basophils % 0.9 % (0.0-2.0) Nucleated Red Blood Cells % 0.0 /100WBC (0.0-0.0) Immature Granulocytes # 0.010 10^3/ul (0.0-0.031) Neutrophils # 3.4 10^3/ul (1.6-7.5) Lymphocytes # 1.1 10^3/ul (0.8-2.9) Monocytes # 0.8 10^3/ul (0.3-0.9) Eosinophils # 0.3 10^3/ul (0.0-0.5) Basophils # 0.1 10^3/ul (0.0-0.1) Nucleated Red Blood Cells # 0.0 10^3/ul (0.0-0.0) Sodium Level 143 mmol/L (135-144) Potassium Level 4.3 mmol/L (3.5-5.1) Chloride Level 110 mmol/L (97-110) Carbon Dioxide Level 29 mmol/L (21-31) Anion Gap 4 (5-13) Blood Urea Nitrogen 33 mg/dl (7-20) Creatinine 1.51 mg/dl (0.44-1.00) Est Glomerular Filtrat Rate mL/min mL/min (>60) Glucose Level 100 mg/dl (70-220) Calcium Level 8.6 mg/dl (8.4-10.2) Phosphorus Level 3.8 mg/dl (2.5-4.9) Magnesium Level 2.3 mg/dl (1.7-2.5) OMER ALEGRIA December 15, 2018 11:20
== END 2018-12-15 13:00 | disposition home health service (06) | DRG 291 ==
LOC: E/R 17:19 → 6WM 19:17
PROVIDERS: ADMIT Family Medicine; ATTEND Family Medicine
DX: I13.0 Hypertensive heart and chronic kidney disease with heart failure and stage 1 through stage 4 chronic kidney disease, or unspecified chronic kidney disease (principal); J96.00 Acute respiratory failure, unspecified whether with hypoxia or hypercapnia; I50.33 Acute on chronic diastolic (congestive) heart failure; I16.1 Hypertensive emergency; N17.9 Acute kidney failure, unspecified; N18.9 Chronic kidney disease, unspecified; R00.1 Bradycardia, unspecified; D50.9 Iron deficiency anemia, unspecified; E03.9 Hypothyroidism, unspecified; F03.90 Unspecified dementia, unspecified severity, without behavioral disturbance, psychotic disturbance, mood disturbance, and anxiety
CPT/HCPCS: 36415; 71045; 76775; 80048; 80053; 80061; 81001; 81003; 82043; 82550; 82553; 83036; 83735; 83880; 84100; 84155; 84300; 84439; 84443; 84484; 85025; 85610; 85730; 86706; 86803; 87340; 93005; 93306; 96374; 96375; J1644; J1940; J2270; J2405; J3475